=== PATIENT | male | born 1950 | race Caucasian/White ===

== ENCOUNTER 2021-01-29 16:59 | Emergency (ER) | payer MEDICARE, OTHER ==
--- NOTE | 2021-01-29 17:42 | EDM.PDOC ---
ED HPI GENERAL MEDICAL PROBLEM - General Chief Complaint: Fever Stated Complaint: CHILLS WEAK CONFUSED FEVER Time Seen by Provider: 01/29/21 17:37 Source of Information: Reports: Patient History Limitations: Reports: No Limitations - History of Present Illness INITIAL COMMENTS - FREE TEXT/NARRATIVE: 70-year-old male attends the ED due to development of high fever(104) generaliz ed weakness, and diaphoresis and apparent confusion at home this afternoon. Temperature in the ED is now 99 degrees. O2 sats are 95 to 96% on room air. Of note the patient developed signs and symptoms of COVID-19 illness with fever chills headache on January 22. He attended the ED earlier this morning as an outpatient to receive Regen-Cov infusion which she did receive. He is feeling somewhat better now. His gave him an antipyretic at home is not sure if it was Tylenol or Motrin. He has a paroxysmal cough with no productive sputum. No sore throat. He has lost his sense of taste and smell. Not able to eat due to loss of appetite. Small amount of diarrhea which was believed to be starvation stools. Paroxysmal cough is his worst problem. Generalized weakness. He states his also has a COVID-19 illness but has only cold and sinus symptoms. He did not receive COVID-19 vaccine. Onset: Today, Sudden Onset Date: 01/29/21 Onset Time: 16:00 Duration: Day(s):, Getting Worse (Has been sick with COVID-19 illness for 7 days.) Location: Reports: Other (Onset of high fever with diaphoresis this afternoon and apparent confusion when his temperature was as high as 104 degrees. He feels pretty well back to normal now after receiving antipyretic medication at home.) Quality: Reports: Ache Severity: Moderate (Mild generalized myalgia.) Improves with: Reports: None Worsens with: Reports: Movement Context: Reports: Other (Both he and his are COVID-19 positive with symptoms starting last January 22.). Denies: Activity, Exercise, Lifting, Sick Contact, Trauma Associated Symptoms: Reports: Confusion (Transient confusion reported today with temperature reported to be as high as 104 degrees.), Cough, cough w sputum, Diaphoresis, Fever/Chills, Loss of Appetite, Malaise, Nausea/Vomiting, Shortness of Breath, Weakness (Occasional nausea and vomiting.). Denies: Chest Pain, Headaches, Rash, Seizure, Syncope Treatments TAP PULLER: Reports: Other (see below) (He is not sure if his gave him Tylenol or Motrin for fever relief this afternoon.) - Related Data Allergies Allergy/AdvReac Type Severity Reaction Status Date / Time No Known Allergies Allergy Verified 01/29/21 17:14 Home Meds: Home Meds Insulin Glarg,Human.Rec.Analog [Lantus Solostar] 60 units SQ BEDTIME 01/29/21 [History] lisinopriL [Prinivil] 10 mg PO DAILY 01/29/21 [History] metFORMIN HCl [Metformin HCl] 500 mg PO BID 01/29/21 [History] Past Medical History Cardiovascular History: Reports: Hypertension Endocrine/Metabolic History: Reports: Diabetes, Type II (Controlled with both long-acting and short acting insulin and Metformin daily), Obesity/BMI 30+ Oncologic (Cancer) History: Reports: Colon (8 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 Musculoskeletal Surgical History: Reports: Other (See Below) Other Musculoskeletal Surgeries/Procedures:: Pelvic Surgery Social & Family History - Tobacco Use Tobacco Use Status *Q: Never Tobacco User - Caffeine Use Caffeine Use: Reports: Coffee - Recreational Drug Use Recreational Drug Use: No - Living Situation & Occupation Living situation: Reports: Occupation: Retired ED ROS GENERAL - Review of Systems Review Of Systems: See Below Constitutional: Reports: Fever, Chills, Malaise, Fatigue, Decreased Appetite, Weight Loss HEENT: Reports: Glasses, Other Respiratory: Reports: Shortness of Breath (Loss of sense of taste and smell with COVID-19 illness), Cough, Sputum (Not getting much sputum up.). Denies: Wheezing, Pleuritic Chest Pain, Hemoptysis, Other Cardiovascular: Reports: Chest Pain, Blood Pressure Problem (Central chest discomfort from coughing.), Dyspnea on Exertion, Lightheadedness. Denies: Claudication, Edema, Orthopnea, Palpitations Endocrine: Reports: Fatigue GI/Abdominal: Reports: Diarrhea (Slight yellow stools 2-3 times daily.), Decreased Appetite (Marked loss of appetite), Nausea, Vomiting (On occasion.) : Reports: Other (Urine is dark in color.) Musculoskeletal: Reports: Neck Pain, Shoulder Pain, Back Pain, Muscle Pain Skin: Reports: No Symptoms Neurological: Reports: Confusion, Dizziness, Headache (Confusion this afternoon reported with development of very high fever.), Difficulty Walking, Weakness. Denies: Numbness, Syncope, Tingling, Tremors, Trouble Speaking (Due to weakness and dyspnea) Psychiatric: Reports: No Symptoms Hematologic/Lymphatic: Reports: No Symptoms ED EXAM, GENERAL - Physical Exam Exam: See Below Exam Limited By: No Limitations General Appearance: Alert, WD/WN, No Apparent Distress, Other (Patient is alert answers all questions appropriately. Temperature was 37.2 degrees. Heart rate 98 in sinus. Respiratory 18 with O2 sats of 95 to 96% room air. BP 191/76 and currently down to 148/85.) Eye Exam: Bilateral Eye: Normal Inspection (No scleral icterus or blepharal pallor.), PERRL Throat/Mouth: Normal Inspection, Normal Lips, Normal Oropharynx, Other (Tongue is mildly dry.) Head: Atraumatic ( Oropharynx is otherwise normal), Normocephalic Neck: Normal Inspection, Supple, Non-Tender, Full Range of Motion. No: Carotid Bruit, Lymphadenopathy (L), Lymphadenopathy (R) Respiratory/Chest: Lungs Clear ( 95 to 96% on room air.), Normal Breath Sounds, No Accessory Muscle Use, Respiratory Distress (Mild tachypnea. O2 sats are maintained at) Cardiovascular: Normal Peripheral Pulses, Regular Rate, Rhythm, No Edema, No Gallop, No Murmur, No Rub Peripheral Pulses: 2+: Carotid (L), Carotid (R), Posterior Tibial (L), Posterior Tibial (R), Dorsalis Pedis (L), Dorsalis Pedis (R) GI/Abdominal: Normal Bowel Sounds, Non-Tender, No Organomegaly, Pelvis Stable, Hernia (Ventral hernia.), Other (The abdominal wall is firm. He has a supraumbilical midline surgical wound apparently for removal of 8 inches of his transverse colon due to cancer. This was approximately 5 years ago and he never required any chemotherapy. He has developed a incisional or ventral hernia. ). No: Guarding, Rigid, Rebound, Tender Back Exam: Normal Inspection, Full Range of Motion, Other (Mild increase in lumbar lordotic curvature.). No: CVA Tenderness (L), CVA Tenderness (R) Extremities: Normal Inspection, Normal Range of Motion, Non-Tender, No Pedal Edema Neurological: Alert, Oriented, CN II-XII Intact, Normal Cognition Psychiatric: Normal Affect, Normal Mood Skin Exam: Warm, Dry, Intact, Normal Color, No Rash #1 Interpretation EKG Date: 01/29/21 Time: 17:47 Rhythm: NSR Rate (Beats/Min): 97 [place]: Normal P-Wave: Enlarged (Left atrial hypertrophy) QRS: Other (Early R wave transition consider right ventricle hypertrophy versus septal hypertrophy pattern.) ST-T: Other (T wave inversion leads III and aVF consider inferior wall ischemia) QT: Prolonged (Markedly prolonged) EKG Interpretation Comments: Abnormal ECG Course - Vital Signs Last Recorded V/S: Last Vital Signs Temp 37.2 C 01/29/21 17:10 Pulse 95 01/29/21 17:15 Resp 20 01/29/21 17:15 BP 153/68 H 01/29/21 17:15 Pulse Ox 95 01/29/21 17:15 - Orders/Labs/Meds Orders: Active Orders 24 hr Category Date Time Status Chest 1V Frontal [CR] Stat Exams 01/29/21 17:37 Taken BLOOD CULTURE [MREF] Stat Lab 01/29/21 18:00 Received BLOOD CULTURE [MREF] Stat Lab 01/29/21 18:05 Received Sodium Chloride 0.9% [Normal Saline] 500 ml Med 01/29/21 18:17 Active IV .BOLUS Blood Culture x2 Reflex Set [OM.PC] Stat Oth 01/29/21 17:47 Ordered Medication Orders Sodium Chloride (Normal Saline) 500 mls @ 500 mls/hr IV .BOLUS ONE Stop: 01/29/21 19:16 Last Admin: 01/29/21 18:30 Dose: Not Given Documented by: SAKSHI Labs: Laboratory Tests 01/29/21 01/29/21 01/29/21 Range/Units 17:10 17:10 17:10 WBC 4.29 (4.23-9.07) K/mm3 RBC 4.96 (4.63-6.08) M/mm3 Hgb 15.0 (13.7-17.5) gm/dl Hct 43.7 (40.1-51.0) % MCV 88.1 (79.0-92.2) fl MCH 30.2 (25.7-32.2) pg MCHC 34.3 (32.2-35.5) g/dl RDW Std Deviation 45.1 H (35.1-43.9) fL Plt Count 159 L (163-337) K/mm3 MPV 9.3 L (9.4-12.3) fl Neut % (Auto) 73.5 H (34.0-67.9) % Lymph % (Auto) 15.4 L (21.8-53.1) % Tripp % (Auto) 10.7 (5.3-12.2) % Eos % (Auto) 0 L (0.8-7.0) Baso % (Auto) 0.2 (0.1-1.2) % Neut # (Auto) 3.15 (1.78-5.38) K/mm3 Lymph # (Auto) 0.66 L (1.32-3.57) K/mm3 Tripp # (Auto) 0.46 (0.30-0.82) K/mm3 Eos # (Auto) 0.00 L (0.04-0.54) K/mm3 Baso # (Auto) 0.01 (0.01-0.08) K/mm3 D-Dimer, Quantitative (0.19-0.50) mg/L Sodium 135 L (136-145) mEq/L Potassium 4.2 (3.5-5.1) mEq/L Chloride 100 (98-107) mEq/L Carbon Dioxide 20 L (21-32) mEq/L Anion Gap 19.2 H (5-15) BUN 19 H (7-18) mg/dL Creatinine 1.1 (0.7-1.3) mg/dL Est Cr Clr Drug Dosing TNP Estimated GFR (MDRD) > 60 (>60) mL/min BUN/Creatinine Ratio 17.3 (14-18) Glucose 182 H (70-99) mg/dL Lactic Acid (0.4-2.0) mmol/L Calcium 8.5 (8.5-10.1) mg/dL Magnesium 1.8 (1.8-2.4) mg/dL Total Bilirubin 0.4 (0.2-1.0) mg/dL AST 37 (15-37) U/L ALT 53 (16-63) U/L Alkaline Phosphatase 57 (46-116) U/L Lactate Dehydrogenase 250 H (85-227) U/L Troponin I < 0.017 (0.00-0.056) ng/mL C-Reactive Protein 4.3 H* (<1.0) mg/dL NT-Pro-B Natriuret Pep 9 (0-125) pg/mL Total Protein 7.5 (6.4-8.2) g/dl Albumin 3.8 (3.4-5.0) g/dl Globulin 3.7 gm/dL Albumin/Globulin Ratio 1.0 (1-2) 01/29/21 01/29/21 Range/Units 17:10 18:00 WBC (4.23-9.07) K/mm3 RBC (4.63-6.08) M/mm3 Hgb (13.7-17.5) gm/dl Hct (40.1-51.0) % MCV (79.0-92.2) fl MCH (25.7-32.2) pg MCHC (32.2-35.5) g/dl RDW Std Deviation (35.1-43.9) fL Plt Count (163-337) K/mm3 MPV (9.4-12.3) fl Neut % (Auto) (34.0-67.9) % Lymph % (Auto) (21.8-53.1) % Tripp % (Auto) (5.3-12.2) % Eos % (Auto) (0.8-7.0) Baso % (Auto) (0.1-1.2) % Neut # (Auto) (1.78-5.38) K/mm3 Lymph # (Auto) (1.32-3.57) K/mm3 Tripp # (Auto) (0.30-0.82) K/mm3 Eos # (Auto) (0.04-0.54) K/mm3 Baso # (Auto) (0.01-0.08) K/mm3 D-Dimer, Quantitative 0.70 H (0.19-0.50) mg/L Sodium (136-145) mEq/L Potassium (3.5-5.1) mEq/L Chloride (98-107) mEq/L Carbon Dioxide (21-32) mEq/L Anion Gap (5-15) BUN (7-18) mg/dL Creatinine (0.7-1.3) mg/dL Est Cr Clr Drug Dosing Estimated GFR (MDRD) (>60) mL/min BUN/Creatinine Ratio (14-18) Glucose (70-99) mg/dL Lactic Acid 1.2 (0.4-2.0) mmol/L Calcium (8.5-10.1) mg/dL Magnesium (1.8-2.4) mg/dL Total Bilirubin (0.2-1.0) mg/dL AST (15-37) U/L ALT (16-63) U/L Alkaline Phosphatase (46-116) U/L Lactate Dehydrogenase (85-227) U/L Troponin I (0.00-0.056) ng/mL C-Reactive Protein (<1.0) mg/dL NT-Pro-B Natriuret Pep (0-125) pg/mL Total Protein (6.4-8.2) g/dl Albumin (3.4-5.0) g/dl Globulin gm/dL Albumin/Globulin Ratio (1-2) Meds: Medications Generic Name Dose Route Start Last Admin Trade Name Freq PRN Reason Stop Dose Admin Sodium Chloride 500 mls @ 500 mls/hr 01/29/21 18:17 01/29/21 18:30 Normal Saline IV 01/29/21 19:16 Not Given .BOLUS ONE Discontinued Medications Generic Name Dose Route Start Last Admin Trade Name Freq PRN Reason Stop Dose Admin Dextrose/Sodium Chloride 1,000 mls @ 250 mls/hr 01/29/21 17:45 01/29/21 17:50 Dextrose 5%-Normal Saline IV 250 mls/hr ASDIRECTED JANNA Administration - Radiology Interpretation Free Text/Narrative:: 70-year-old male presents to the ED after developing or spiking a very high fever reportedly 104 degrees at home around 1600 hrs. this afternoon. His reports this caused him to be confused and disoriented. He has improved after receiving antipyretic therapy administered by his . Patient does not recall if it was Tylenol or Motrin. He answers all questions appropriately now. He was in the ED earlier this morning for monoclonal antibody therapy which he tolerated well. Patient was diagnosed with COVID-19 with symptoms beginning on January 22. His also has illness but he states she mostly has a cold and minimal cough. He has lost his sense of taste and smell. He continues to have a paroxysmal minimally productive cough. Complete loss of appetite with poor oral intake for the last several days. Minimal diarrhea which I would consider secretory or starvation stools. Temperature in the ED is down to 99 degrees. He is alert oriented and answers all questions appropriate at this time. His lungs are clear to auscultation percussion and O2 sats are 95 to 96% on room air. He will be worked up for sepsis to include lactic acid and blood cultures x2. He will receive fluids D5 LR at 250 mils per hour. At this point time it does not appear that he will require admission to the hospital. Will await his labs and chest x-ray. - Re-Assessments/Exams Free Text/Narrative Re-Assessment/Exam: 01/29/21 18:16 White count is normal at 4.29. The differential shows 73.5% neutrophils. Hemoglobin is 15.0 with hematocrit of 43.7. Platelet count is slightly low at 159,000. D-dimer is slightly elevated at 0.70. Sodium slightly low at 135 with a potassium of 4.2. Chloride is 100 with a bicarb of 20. Anion gap is elevated at 19.2 indicating that he is volume depleted. BUN is 19 with a creatinine of 1.1 and a GFR greater than 60. Glucose is elevated at 182. Calcium is 8.5. Magnesium is 1.8. Liver function is normal. LDH mildly elevated at 250. Troponin I is less than 0.017. C-reactive protein is 4.3. BNP is 9. Total protein 7.5 with an albumin fraction of 3.8 01/29/21 18:20 chest x-ray reveals no evidence of pneumonia. Mildly hyperinflated lung dia bilaterally. Cardiac silhouette and mediastinum are within normal limits. Slightly tortuous thoracic aorta. Departure - Departure Time of Disposition: 18:56 Disposition: Home, Self-Care 01 Condition: Fair Clinical Impression: COVID-19 determined by clinical diagnostic criteria - Discharge Information *PRESCRIPTION DRUG MONITORING PROGRAM REVIEWED*: Not Applicable *COPY OF PRESCRIPTION DRUG MONITORING REPORT IN PATIENT ALEJANDRA: Not Applicable Instructions: COVID-19 Frequently Asked Questions, COVID-19 Vaccine Information Referrals: PCP,None [Primary Care Provider] - Forms: ED Department Discharge Additional Instructions: Evaluation in the emergency room today in regards to known Covid 19 positivity with illness starting January 22 1 week ago. You did receive dual monoclonal antibody therapy Regen-Cov earlier this morning. The spike in temperature that occurred this afternoon may well have been due to your immune system reaction to the monoclonal antibody therapy. Confusion occurred from the very high fever reported at home of 104 degrees. Ibuprofen given at home has reduced her fever and it is currently normal in the ED. Chest x-ray done through the emergency room is negative for any signs of pneumonia at this time. Lab tests reveal that you are mildly dehydrated and I would suggest drinking Gatorade or Powerade 0 in an effort to maintain hydration in spite of lack of appetite. Loose stools are secondary to starvation stools from not being able to eat. Even soda crackers will help somewhat. You did receive 500 mils of intravenous fluids while in the emergency department to help correct dehydration. You will need to continue to take in at least 150 mils of fluids daily to maintain hydration. You will likely to continue Motrin/Ibuprofen center milligrams every 6 hours as needed for relief of fever, headache, body aches. Monitor your sugars as they will tend to be higher with COVID-19 illness even in spite of eating. You will be sent home with a pulse oximeter to measure your oxygen level at home. Concern should arise if your oxygen level is 88 and is staying there for an hour or 2 and not coming up higher. This would mean that you are developing COVID-19 pneumonia and you would need to return to the emergency room for likely admission to the hospital. Fevers are likely to persist for at least 24 to 36 hours and reaction to the monoclonal antibody she received earlier this morning. Sepsis Event Note (ED) - Evaluation Sepsis Screening Result: Possible Sepsis Risk - Focused Exam Vital Signs: Vital Signs Temp Pulse Resp BP Pulse Ox 01/29/21 17:15 95 20 153/68 H 95 01/29/21 17:10 37.2 C 98 18 191/76 H 96 - My Orders Last 24 Hours: My Active Orders 01/29/21 17:37 Chest 1V Frontal [CR] Stat 01/29/21 17:47 Blood Culture x2 Reflex Set [OM.PC] Stat 01/29/21 18:00 BLOOD CULTURE [MREF] Stat 01/29/21 18:05 BLOOD CULTURE [MREF] Stat 01/29/21 18:17 Sodium Chloride 0.9% [Normal Saline] 500 ml IV .BOLUS - Assessment/Plan Last 24 Hours: My Active Orders 01/29/21 17:37 Chest 1V Frontal [CR] Stat 01/29/21 17:47 Blood Culture x2 Reflex Set [OM.PC] Stat 01/29/21 18:00 BLOOD CULTURE [MREF] Stat 01/29/21 18:05 BLOOD CULTURE [MREF] Stat 01/29/21 18:17 Sodium Chloride 0.9% [Normal Saline] 500 ml IV .BOLUS
[2021-01-29] MEDS ORDERED: Dextrose 5%-0.9% NaCl 1,000 ML IV SCH (17:45)
[2021-01-29] MEDS ORDERED: Sodium Chloride 0.9% 500 ML IV ONE (18:17)
--- NOTE | 2021-01-29 20:46 | CR ---
Chest: Frontal view of the chest was obtained. Comparison: No prior chest imaging is available. Heart size is normal. Tortuous thoracic aorta is seen. Lungs are clear with no acute parenchymal change. Scattered degenerative endplate spurring is seen within the spine. Impression: 1. Nothing acute is seen on frontal chest x-ray. Diagnostic code #2
== END 2021-01-29 19:00 | disposition home or self-care (01) ==
LOC: JD.ED 16:59
DX: U07.1 COVID-19 (principal); E11.9 Type 2 diabetes mellitus without complications; E66.9 Obesity, unspecified; Z68.30 Body mass index [BMI] 30.0-30.9, adult; Z79.4 Long term (current) use of insulin; R06.02 Shortness of breath
CPT/HCPCS: 36415; 71045; 80053; 83605; 83615; 83735; 83880; 84484; 85025; 85379; 86140; 87040; 93005; 99285; J7042; M0243; Q0243; 93010; 99284

== ENCOUNTER 2021-02-06 13:15 | Emergency (ER) | payer MEDICARE, OTHER ==
[2021-02-06] MEDS ORDERED: Sodium Chloride 0.9% 10 ML Syringe FLUSH PRN ×2 (13:53→14:51)
[2021-02-06] MEDS ORDERED: Sodium Chloride 0.9% 1,000 ML IV STA ×2 (13:54→15:36)
[2021-02-06] MEDS ORDERED: Iopamidol 755 Mg/ML 100 ML Bottle IVPUSH ONE (14:51)
[2021-02-06] MEDS ORDERED: Sodium Chloride 0.9% 100 ML IV SCH (15:00)
--- NOTE | 2021-02-06 15:09 | CR ---
Chest: Portable view of the chest was obtained. Comparison: Prior chest x-ray at 01/29/21. Increased density is seen within both lung bases. This represents an interval change from prior chest x-ray. Heart size is within normal limits for portable technique. Tortuous thoracic aorta is seen. Endplate spurring is seen within the spine. Impression: 1. Increased density within both lung bases. Findings presumably are due to COVID pneumonia. 2. Other nonacute findings. Diagnostic code #3
--- NOTE | 2021-02-06 15:37 | CT ---
CT chest Technique: Multiple axial sections were obtained from above the lung apices inferiorly through the lung bases. Intravenous contrast was utilized. Study has been performed as a pulmonary angiogram protocol. Comparison: Prior chest x-ray performed earlier on the same day (2:00 PM). Findings: Pulmonary arteries are well opacified. Small segmental branch within the left lower lung shows evidence of pulmonary embolism. No other findings are seen within the chest to indicate additional pulmonary emboli. Thoracic aorta shows no aneurysm. Mediastinum shows small lymph nodes believed to be within normal limits. No axillary adenopathy is seen. No pericardial thickening is seen. Small portion of the visualized upper abdominal structures shows no acute abnormality. Lung window setting shows patchy areas of increased density within the upper lungs as well as more prominently within both lower lobes. Findings have the appearance of so-called COVID pneumonia. No pleural effusions are seen. Bone window settings were reviewed which show degenerative change within the spine with no acute osseous abnormality being seen. Impression: 1. Small segmental branch within the left lower lung shows evidence of pulmonary embolism. 2. No additional findings within the chest to indicate additional pulmonary emboli. 3. Patchy areas of increased density within both sides of the chest compatible with COVID pneumonia. Diagnostic code #3
[2021-02-06] MEDS ORDERED: Apixaban 5 MG Tab PO ONE (15:41)
--- NOTE | 2021-02-06 15:50 | EDM.PDOC ---
ED HPI GENERAL MEDICAL PROBLEM - General Chief Complaint: Respiratory Problem Stated Complaint: INFUSION LAST WEEK GETTING WORSE Time Seen by Provider: 02/06/21 13:53 Source of Information: Reports: Patient, RN Notes Reviewed History Limitations: Reports: No Limitations - History of Present Illness INITIAL COMMENTS - FREE TEXT/NARRATIVE: Patient is a 70-year-old male presenting to the emergency department with complaints of worsening of Covid symptoms. He developed symptoms of Covid around 21 January. He was seen in this emergency department last week and received Regeneron infusion. Over the last few days, he has been increasingly weak and fatigued. He is not been eating or drinking much and states his urine is quite dark in color. He only voids once or twice a day. He does feel short of breath and has chest tightness. Denies any chest pain. He has had no vomiting or diarrhea. - Related Data Allergies Allergy/AdvReac Type Severity Reaction Status Date / Time No Known Allergies Allergy Verified 02/06/21 13:49 Home Meds: Home Meds Insulin Glarg,Human.Rec.Analog [Lantus Solostar] 60 units SQ BEDTIME 01/29/21 [History] lisinopriL [Prinivil] 10 mg PO DAILY 01/29/21 [History] metFORMIN HCl [Metformin HCl] 500 mg PO BID 01/29/21 [History] Apixaban [Eliquis] 5 mg PO BID #1 tab.ds.pk 02/06/21 [Rx] Benzonatate 100 mg PO TID PRN #21 capsule 02/06/21 [Rx] Past Medical History Cardiovascular History: Reports: Hypertension Endocrine/Metabolic History: Reports: Diabetes, Type II, Obesity/BMI 30+ Oncologic (Cancer) History: Reports: Colon - Infectious Disease History Infectious Disease History: Reports: Novel Coronavirus - Past Surgical History GI Surgical History: Reports: Hernia, Abdominal, Other (See Below) Other GI Surgeries/Procedures: Colon CA surgery, 8" of bowel removed. Musculoskeletal Surgical History: Reports: Other (See Below) Other Musculoskeletal Surgeries/Procedures:: Pelvic Surgery Social & Family History - Tobacco Use Tobacco Use Status *Q: Never Tobacco User - Caffeine Use Caffeine Use: Reports: Coffee - Living Situation & Occupation Living situation: Reports: Occupation: Retired ED ROS GENERAL - Review of Systems Review Of Systems: Comprehensive ROS is negative, except as noted in HPI. ED EXAM, GENERAL - Physical Exam Exam: See Below Exam Limited By: No Limitations General Appearance: Alert, WD/WN, No Apparent Distress Eye Exam: Bilateral Eye: PERRL Respiratory/Chest: No Respiratory Distress, Lungs Clear, Normal Breath Sounds, No Accessory Muscle Use, Chest Non-Tender, Other (Harsh cough with deep breathing) Cardiovascular: Normal Peripheral Pulses, Regular Rate, Rhythm, No Edema, No Gallop, No JVD, No Murmur, No Rub GI/Abdominal: Normal Bowel Sounds, Soft, Non-Tender, No Organomegaly, No Distention, No Abnormal Bruit, No Mass Neurological: Alert, Oriented, CN II-XII Intact, Normal Cognition, Normal Gait, Normal Reflexes, No Motor/Sensory Deficits Psychiatric: Normal Affect, Normal Mood Skin Exam: Warm, Dry, Intact, Normal Color, No Rash #1 Interpretation EKG Date: 02/06/21 Time: 14:11 Rhythm: NSR Rate (Beats/Min): 92 [place]: Normal P-Wave: Present QRS: Normal ST-T: Normal QT: Normal Course - Vital Signs Last Recorded V/S: Last Vital Signs Temp 97.9 F 02/06/21 13:43 Pulse 92 02/06/21 13:43 Resp 22 H 02/06/21 13:43 BP 157/79 H 02/06/21 13:43 Pulse Ox 94 L 02/06/21 13:43 - Orders/Labs/Meds Orders: Active Orders 24 hr Category Date Time Status Peripheral IV Insertion Adult [OM.PC] Stat Oth 02/06/21 13:53 Ordered Labs: Laboratory Tests 02/06/21 02/06/21 02/06/21 Range/Units 11:40 14:05 14:05 WBC 9.86 H (4.23-9.07) K/mm3 RBC 4.64 (4.63-6.08) M/mm3 Hgb 13.8 (13.7-17.5) gm/dl Hct 41.1 (40.1-51.0) % MCV 88.6 (79.0-92.2) fl MCH 29.7 (25.7-32.2) pg MCHC 33.6 (32.2-35.5) g/dl RDW Std Deviation 43.6 (35.1-43.9) fL Plt Count 430 H D (163-337) K/mm3 MPV 8.3 L (9.4-12.3) fl Neut % (Auto) 79.7 H (34.0-67.9) % Lymph % (Auto) 7.5 L (21.8-53.1) % [place] % (Auto) 11.3 (5.3-12.2) % Eos % (Auto) 0.8 (0.8-7.0) Baso % (Auto) 0.2 (0.1-1.2) % Neut # (Auto) 7.86 H (1.78-5.38) K/mm3 Lymph # (Auto) 0.74 L (1.32-3.57) K/mm3 [place] # (Auto) 1.11 H (0.30-0.82) K/mm3 Eos # (Auto) 0.08 (0.04-0.54) K/mm3 Baso # (Auto) 0.02 (0.01-0.08) K/mm3 D-Dimer, Quantitative 16.72 H (0.19-0.50) mg/L Sodium 137 (136-145) mEq/L Potassium 4.4 (3.5-5.1) mEq/L Chloride 100 (98-107) mEq/L Carbon Dioxide 18 L (21-32) mEq/L Anion Gap 23.4 H (5-15) BUN 15 (7-18) mg/dL Creatinine 1.0 (0.7-1.3) mg/dL Est Cr Clr Drug Dosing 72.16 mL/min Estimated GFR (MDRD) > 60 (>60) mL/min BUN/Creatinine Ratio 15.0 (14-18) Glucose 111 H (70-99) mg/dL Calcium 9.1 (8.5-10.1) mg/dL Total Bilirubin 0.6 (0.2-1.0) mg/dL AST 61 H (15-37) U/L ALT 71 H (16-63) U/L Alkaline Phosphatase 90 (46-116) U/L Troponin I < 0.017 (0.00-0.056) ng/mL NT-Pro-B Natriuret Pep (0-125) pg/mL Total Protein 7.9 (6.4-8.2) g/dl Albumin 2.7 L (3.4-5.0) g/dl Globulin 5.2 gm/dL Albumin/Globulin Ratio 0.5 L (1-2) Urine Color (Yellow) Urine Appearance (Clear) Urine pH (5.0-8.0) Ur Specific [place] (1.005-1.030) Urine Protein (Negative) Urine Glucose (UA) (Negative) Urine Ketones (Negative) Urine Occult Blood (Negative) Urine Nitrite (Negative) Urine Bilirubin (Negative) Urine Urobilinogen (0.2-1.0) Ur Leukocyte Esterase (Negative) U Hyaline Cast (Auto) (0-5) /lpf Urine RBC (0-5) /hpf Urine WBC (0-5) /hpf Ur Epithelial Cells (0-5) /hpf Urine Bacteria (FEW) /hpf Urine Mucus (FEW) /hpf 02/06/21 02/06/21 Range/Units 14:05 16:48 WBC (4.23-9.07) K/mm3 RBC (4.63-6.08) M/mm3 Hgb (13.7-17.5) gm/dl Hct (40.1-51.0) % MCV (79.0-92.2) fl MCH (25.7-32.2) pg MCHC (32.2-35.5) g/dl RDW Std Deviation (35.1-43.9) fL Plt Count (163-337) K/mm3 MPV (9.4-12.3) fl Neut % (Auto) (34.0-67.9) % Lymph % (Auto) (21.8-53.1) % [place] % (Auto) (5.3-12.2) % Eos % (Auto) (0.8-7.0) Baso % (Auto) (0.1-1.2) % Neut # (Auto) (1.78-5.38) K/mm3 Lymph # (Auto) (1.32-3.57) K/mm3 [place] # (Auto) (0.30-0.82) K/mm3 Eos # (Auto) (0.04-0.54) K/mm3 Baso # (Auto) (0.01-0.08) K/mm3 D-Dimer, Quantitative (0.19-0.50) mg/L Sodium (136-145) mEq/L Potassium (3.5-5.1) mEq/L Chloride (98-107) mEq/L Carbon Dioxide (21-32) mEq/L Anion Gap (5-15) BUN (7-18) mg/dL Creatinine (0.7-1.3) mg/dL Est Cr Clr Drug Dosing mL/min Estimated GFR (MDRD) (>60) mL/min BUN/Creatinine Ratio (14-18) Glucose (70-99) mg/dL Calcium (8.5-10.1) mg/dL Total Bilirubin (0.2-1.0) mg/dL AST (15-37) U/L ALT (16-63) U/L Alkaline Phosphatase (46-116) U/L Troponin I (0.00-0.056) ng/mL NT-Pro-B Natriuret Pep 29 (0-125) pg/mL Total Protein (6.4-8.2) g/dl Albumin (3.4-5.0) g/dl Globulin gm/dL Albumin/Globulin Ratio (1-2) Urine Color Yellow (Yellow) Urine Appearance Clear (Clear) Urine pH 5.5 (5.0-8.0) Ur Specific [place] 1.020 (1.005-1.030) Urine Protein Negative (Negative) Urine Glucose (UA) Negative (Negative) Urine Ketones 4+ H (Negative) Urine Occult Blood Negative (Negative) Urine Nitrite Negative (Negative) Urine Bilirubin 1+ H (Negative) Urine Urobilinogen 0.2 (0.2-1.0) Ur Leukocyte Esterase Negative (Negative) U Hyaline Cast (Auto) 0-5 (0-5) /lpf Urine RBC 0-5 (0-5) /hpf Urine WBC 0-5 (0-5) /hpf Ur Epithelial Cells Not seen (0-5) /hpf Urine Bacteria Few (FEW) /hpf Urine Mucus Few (FEW) /hpf Meds: Medications Discontinued Medications Generic Name Dose Route Start Last Admin Trade Name Freq PRN Reason Stop Dose Admin Apixaban 10 mg 02/06/21 15:41 02/06/21 16:28 Apixaban 5 Mg Tab PO 02/06/21 15:42 10 mg ONETIME ONE Administration Sodium Chloride 1,000 mls @ 999 mls/hr 02/06/21 13:54 02/06/21 14:45 Normal Saline IV 09/02/21 14:54 999 mls/hr NOW STA Infusion Sodium Chloride 100 mls @ 75 mls/hr 02/06/21 15:00 02/06/21 15:10 Normal Saline IV 75 mls/hr ASDIRECTED JANNA Administration Sodium Chloride 1,000 mls @ 999 mls/hr 02/06/21 15:36 02/06/21 16:28 Normal Saline IV 02/06/21 16:36 999 mls/hr NOW STA Administration Iopamidol 100 ml 02/06/21 14:51 02/06/21 15:10 Iopamidol 755 Mg/Ml 100 Ml Bottle IVPUSH 02/06/21 14:52 100 ml ONETIME ONE Administration Sodium Chloride 10 ml 02/06/21 13:53 02/06/21 14:08 Sodium Chloride 0.9% 10 Ml Syringe FLUSH 10 ml ASDIRECTED PRN Administration Keep Vein Open Sodium Chloride 10 ml 02/06/21 14:51 02/06/21 15:10 Sodium Chloride 0.9% 10 Ml Syringe FLUSH 10 ml ONETIME PRN Administration IV FLUSH - Re-Assessments/Exams Free Text/Narrative Re-Assessment/Exam: Patient is a 70-year-old male presenting to the emergency department with complaints of worsening Covid symptoms. Complains of fatigue, body aches, shortness of breath, decreased appetite. Little fluid intake with dark urine. On exam, he has some faint crackles in his bilateral lower lung dia. Exam is otherwise unremarkable. Oxygen saturation is 94% on room air. Blood work, urinalysis, chest x-ray. We will give him 1 L bolus of normal saline. 02/06/21 1450 Hematology is significant for D-dimer elevated at 16.72, CO2 18, anion gap 23.4. Otherwise unremarkable. proBNP is 29 and troponin is undetectably low. Given the significant elevation of D-dimer, I have ordered CT angiogram of the chest. Lab work indicates that he is quite dehydrated. We will give him a second liter of normal saline. 02/06/21 16:38 CT angiogram of the chest impression as follows: 1. Small segmental branch within the left lower lung shows evidence of pulmonary embolism. 2. No additional findings within the chest to indicate additional pulmonary emboli. 3. Patchy areas of increased density within both sides of the chest compatible with Covid pneumonia. . Results discussed with patient. He will be started on Eliquis for treatment of pulmonary embolism. Vital signs are stable. He is not tachycardic, oxygen is maintaining 94 to 95% on room air. EKG shows acute abnormalities. Once IV fluids are complete, he will be discharged home. He does not have a primary care provider in the area, therefore I will send referral to JIM Duke. Recommend that he call to schedule follow-up visit with her for next week. Discharge instructions as documented. Departure - Departure Time of Disposition: 16:38 Disposition: Home, Self-Care 01 Condition: Good Clinical Impression: Pneumonia due to COVID-19 virus, Pulmonary embolism on left - Discharge Information *PRESCRIPTION DRUG MONITORING PROGRAM REVIEWED*: No *COPY OF PRESCRIPTION DRUG MONITORING REPORT IN PATIENT ALEJANDRA: No Prescriptions: Benzonatate 100 mg PO TID PRN #21 capsule PRN Reason: Cough Apixaban [Eliquis] 5 mg PO BID #1 tab.ds.pk Instructions: COVID-19, Pulmonary Embolism Referrals: Maryellen Goldman PA-C [Physician Supervisor [facility]] - Forms: ED Department Discharge Additional Instructions: You were seen in the emergency department today for worsening of Covid symptoms. Work-up included blood work, urinalysis,, EKG of your heart, chest x-ray, and CT angiogram of your chest. Results of your work-up indicate that your quite dehydrated. You also have a small blood clot in her left lower lung. You have been started on Eliquis which is a blood thinner. Take this as prescribed. Increase your fluid intake is much as tolerable. Referral has been sent to JIM Duke in the clinic. Recommend calling and schedule a follow-up visit with her for next week for ongoing management of your Eliquis medication. If you should experience any new or worsening symptoms, please not hesitate to return to the emergency department for reevaluation. Sepsis Event Note (ED) - Focused Exam Vital Signs: Vital Signs Temp Pulse Resp BP Pulse Ox 02/06/21 13:43 97.9 F 92 22 H 157/79 H 94 L - My Orders Last 24 Hours: My Active Orders 02/06/21 13:53 Peripheral IV Insertion Adult [OM.PC] Stat - Assessment/Plan Last 24 Hours: My Active Orders 02/06/21 13:53 Peripheral IV Insertion Adult [OM.PC] Stat
== END 2021-02-06 17:45 | disposition home or self-care (01) ==
LOC: JD.ED 13:15
DX: U07.1 COVID-19 (principal); J12.82 Pneumonia due to coronavirus disease 2019; I26.99 Other pulmonary embolism without acute cor pulmonale; I10 Essential (primary) hypertension; E66.9 Obesity, unspecified; E11.9 Type 2 diabetes mellitus without complications; Z68.31 Body mass index [BMI] 31.0-31.9, adult; Z79.4 Long term (current) use of insulin; Z79.01 Long term (current) use of anticoagulants; R06.02 Shortness of breath
CPT/HCPCS: 36415; 71045; 71275; 80053; 81001; 83880; 84484; 85025; 85379; 93005; 99285; A9270; J7030; Q9967; 93010; 99284

== ENCOUNTER 2021-02-09 07:42 | Inpatient (IN) | payer MEDICARE, OTHER ==
[2021-02-09] MEDS ORDERED: Metoclopramide 10 MG/2 ML SDV IVPUSH ONE (08:05)
--- NOTE | 2021-02-09 08:09 | EDM.PDOC ---
ED HPI GENERAL MEDICAL PROBLEM - General Chief Complaint: Respiratory Problem Stated Complaint: [facility] Time Seen by Provider: 02/09/21 07:50 Source of Information: Reports: Patient History Limitations: Reports: No Limitations - History of Present Illness INITIAL COMMENTS - FREE TEXT/NARRATIVE: 70-year-old male presents to the ED per [facility] with worsening hypoxemia secondary to COVID-19 pneumonia. O2 sats this morning at home were 85% on his pulse oximeter. Paramedics got 88 to 89%. They placed him on 4 L/min by nasal cannula to achieve O2 sats of 96%. In the ED he has been placed on 2 L/min and O2 sats are staying around 95 to 96%. Initial diagnosis of COVID-19 was made on January 22. Both he and his developed symptoms about the same time. She is doing much better. Patient has been seen twice to the ED since diagnosis. On last visit ,February 06 the patient was diagnosed with worsening Covid pneumonia both lower lobes of the lungs and did have a segmental branch in the left lower lobe containing blood clot or pulmonary embolism. Patient is currently on Eliquis 10 mg twice daily. He still is coughing but bringing up very little mucus. Still has nasal congestion, worse in the mornings. He has had no appetite and is ate very little in the last 10 days. He has a type II diabetic controlled with insulin and has not been checking his sugars. He still been taking his Lantus 61 units every night at bedtime. At the time she is checked he is got anywhere between 70 and 280. Patient is other risk factor is that of COPD mild congestive heart failure and obesity. He did not receive COVID-19 vaccination. He feels generally weak. He did have diarrhea for about 7 to 6 days of illness none in the last 3 days. No nausea or vomiting although sometimes he coughs to the point of near emesis. Still has generalized mild myalgia and occasional headache. Onset: Gradual Onset Date: 01/22/21 (Symptoms of COVID-19 illness began January 22.) Duration: Week(s):, Resolved Prior to Arrival Location: Reports: Chest (Increased chest congestion and hypoxemia at home.), Generalized (Generalized myalgia and weakness), Other (Anorexia) Quality: Reports: Ache Severity: Moderate Improves with: Reports: Rest Worsens with: Reports: Movement (Patient's condition worsens with movement such as walking from the bedroom to the bathroom developing shortness of breath.) Context: Reports: Other (COVID-19 pneumonia). Denies: Activity, Exercise, Lifting, Sick Contact, Trauma Associated Symptoms: Reports: Cough, cough w sputum, Fever/Chills (Current fevers of 101 degrees), Headaches, Loss of Appetite, Malaise (Occasional white sputum), Nausea/Vomiting (Nausea posttussis. No vomiting), Shortness of Breath, Weakness (Generalized weakness and myalgia). Denies: Confusion, Chest Pain, Diaphoresis, Rash, Seizure Treatments [employer]ST: Reports: Acetaminophen - Related Data Allergies Allergy/AdvReac Type Severity Reaction Status Date / Time No Known Allergies Allergy Verified 02/09/21 07:51 Home Meds: Home Meds Insulin Glarg,Human.Rec.Analog [Lantus Solostar] 60 units SQ BEDTIME 01/29/21 [History] lisinopriL [Prinivil] 10 mg PO DAILY 01/29/21 [History] metFORMIN HCl [Metformin HCl] 500 mg PO BID 01/29/21 [History] Benzonatate 100 mg PO TID PRN #21 capsule 02/06/21 [Rx] Apixaban [Eliquis] 10 mg PO BID 02/09/21 [History] Past Medical History HEENT History: Reports: Cataract, Impaired Vision Other HEENT History: wears eyeglasses Cardiovascular History: Reports: Hypertension Endocrine/Metabolic History: Reports: Diabetes, Type II, Obesity/BMI 30+ Oncologic (Cancer) History: Reports: Colon - Infectious Disease History Infectious Disease History: Reports: Novel Coronavirus - Past Surgical History GI Surgical History: Reports: Hernia, Abdominal, Other (See Below) Other GI Surgeries/Procedures: Colon CA surgery, 8" of bowel removed. Musculoskeletal Surgical History: Reports: Other (See Below) Other Musculoskeletal Surgeries/Procedures:: Pelvic Surgery Social & Family History - Tobacco Use Tobacco Use Status *Q: Never Tobacco User Second Hand Smoke Exposure: No - Caffeine Use Caffeine Use: Reports: Coffee - Recreational Drug Use Recreational Drug Use: No - Living Situation & Occupation Living situation: Reports: Occupation: Retired ED ROS GENERAL - Review of Systems Review Of Systems: See Below Constitutional: Reports: Fever, Malaise, Weakness, Fatigue, Decreased Appetite, Weight Loss HEENT: Reports: Glasses, Hearing Loss Respiratory: Reports: Shortness of Breath, Cough, Sputum. Denies: Wheezing, Pleuritic Chest Pain, Hemoptysis (Occasional white sputum) Cardiovascular: Reports: Blood Pressure Problem, Dyspnea on Exertion, Lightheadedness (Occasional). Denies: Chest Pain, Claudication, Edema, Orthopnea, Palpitations Endocrine: Reports: Other (Diabetic and sugars have been anywhere between 70 and 280.) GI/Abdominal: Reports: Anorexia, Diarrhea, Nausea (Did have diarrhea for about 6 days of illness none for the last 4 days). Denies: Abdominal Pain, Vomiting ( still has intermittent nausea), Other : Reports: Other (Urine is quite dark in color. He has been voiding only once or twice per day.) Musculoskeletal: Reports: Back Pain, Joint Pain (Knees hips shoulders and low back), Muscle Pain (Generalized myalgia particularly neck low back and thigh muscles.) Skin: Reports: Bruising (Easily now since being on Eliquis for the last 3 days) Neurological: Reports: Dizziness, Headache, Difficulty Walking (Due to weakness), Weakness. Denies: Confusion, Numbness, Syncope, Tingling Psychiatric: Reports: No Symptoms Hematologic/Lymphatic: Reports: No Symptoms Immunologic: Reports: No Symptoms ED EXAM, GENERAL - Physical Exam Exam: See Below Exam Limited By: No Limitations General Appearance: Alert, WD/WN, No Apparent Distress, Other (Temperature is currently 36.4 degrees. Heart rate 92 in sinus respiratory is 18 with O2 sats of 97% on 2 L/min by nasal cannula. BP is 144/70) Eye Exam: Bilateral Eye: Normal Inspection (No blepharal pallor or scleral icterus), PERRL Ears: Normal TMs Nose: Nasal Drainage Throat/Mouth: Normal Lips, Inflammation, Other (Posterior oropharynx and uvula are erythematous from coughing so much. No exudate noted.) Head: Atraumatic, Normocephalic Neck: Normal Inspection, Supple, Non-Tender, Full Range of Motion, Limited Range of Motion (Does have some crepitus on lateral rotation and flexion.), Tender Lateral. No: Lymphadenopathy (L), Lymphadenopathy (R) Respiratory/Chest: No Respiratory Distress, Rhonchi (Rhonchi both lower lobes little worse on the left side as compared to the right. Anterior upper lungs sound clear.) Cardiovascular: Normal Peripheral Pulses, Regular Rate, Rhythm, No Edema, No Gallop, No Murmur, No Rub Peripheral Pulses: 1+: Posterior Tibial (L), Posterior Tibial (R), Dorsalis Pedis (L), Dorsalis Pedis (R), 2+: Carotid (L), Carotid (R) GI/Abdominal: Normal Bowel Sounds, Soft, Non-Tender, No Organomegaly, No Mass, Pelvis Stable, Distended (Diffusely distended tympany to percussion upper abdomen combined with aerophagia.), Hernia (Is a large paramidline ventral hernia on the left superior to the umbilicus.) Back Exam: Normal Inspection. No: CVA Tenderness (L), CVA Tenderness (R), Vertebral Tenderness Extremities: Normal Inspection, Normal Range of Motion, Non-Tender, No Pedal Edema Neurological: Alert, Oriented, CN II-XII Intact, Normal Cognition. No: Normal Gait (Not tested) Psychiatric: Normal Affect, Normal Mood Skin Exam: Warm, Dry, Intact, Normal Color, No Rash #1 Interpretation EKG Date: 02/09/21 Time: 08:17 Rhythm: NSR Rate (Beats/Min): 88 [place]: Normal P-Wave: Present QRS: Other (There is a early R wave transition consider right ventricular perjury versus septal hypertrophy pattern. Nonspecific intraventricular conduction delay with delta-like waves in V2.) ST-T: Other (Mild T wave inversion noted in leads III and aVF consider inferior wall ischemia) QT: Normal EKG Interpretation Comments: Abnormal ECG Course - Vital Signs Last Recorded V/S: Last Vital Signs Temp 36.4 C 02/09/21 07:45 Pulse 92 02/09/21 07:45 Resp 18 02/09/21 07:45 BP 144/70 H 02/09/21 07:45 Pulse Ox 97 02/09/21 07:45 - Orders/Labs/Meds Orders: Active Orders 24 hr Category Date Time Status Blood Glucose Check, Bedside [RC] ONETIME Care 02/09/21 08:06 Active BLOOD CULTURE [MREF] Stat Lab 02/09/21 09:15 Received BLOOD CULTURE [MREF] Stat Lab 02/09/21 09:25 Received HEPATIC FUNCTION PANEL,HFP [CHEM] DAILY Lab 02/10/21 09:45 Ordered HEPATIC FUNCTION PANEL,[facility] [CHEM] DAILY Lab 02/11/21 09:45 Ordered HEPATIC FUNCTION PANEL,HFP [CHEM] DAILY Lab 02/12/21 09:45 Ordered HEPATIC FUNCTION PANEL,HFP [CHEM] DAILY Lab 02/13/21 09:45 Ordered HEPATIC FUNCTION PANEL,HFP [CHEM] Stat Lab 02/09/21 08:30 Received URINALYSIS W/MICROSCOPIC [UA W/MICROSCOPIC] [URIN] Stat Lab 02/09/21 08:06 Ordered Sodium Chloride 0.9% [Normal Saline] 1,000 ml Med 02/09/21 08:15 Active IV ASDIRECTED Blood Culture x2 Reflex Set [OM.PC] Stat Oth 02/09/21 08:06 Ordered Medication Orders Sodium Chloride (Normal Saline) 1,000 mls @ 100 mls/hr IV ASDIRECTED JANNA Last Admin: 02/09/21 08:49 Dose: 100 mls/hr Documented by: HUSSAIN Remdesivir 200 mg/ Sodium (Chloride) 250 mls @ 250 mls/hr IV ONETIME ONE Stop: 02/09/21 10:59 Last Admin: 02/09/21 10:06 Dose: 250 mls/hr Documented by: HUSSAIN Labs: Laboratory Tests 02/09/21 02/09/21 02/09/21 Range/Units 08:09 08:30 08:30 WBC 12.67 H (4.23-9.07) K/mm3 RBC 4.34 L (4.63-6.08) M/mm3 Hgb 13.0 L (13.7-17.5) gm/dl Hct 38.4 L (40.1-51.0) % MCV 88.5 (79.0-92.2) fl MCH 30.0 (25.7-32.2) pg MCHC 33.9 (32.2-35.5) g/dl RDW Std Deviation 42.6 (35.1-43.9) fL Plt Count 389 H (163-337) K/mm3 MPV 8.4 L (9.4-12.3) fl Neut % (Auto) 84.2 H (34.0-67.9) % Lymph % (Auto) 5.9 L (21.8-53.1) % [place] % (Auto) 8.7 (5.3-12.2) % Eos % (Auto) 0.6 L (0.8-7.0) Baso % (Auto) 0.2 (0.1-1.2) % Neut # (Auto) 10.67 H (1.78-5.38) K/mm3 Lymph # (Auto) 0.75 L (1.32-3.57) K/mm3 [place] # (Auto) 1.10 H (0.30-0.82) K/mm3 Eos # (Auto) 0.08 (0.04-0.54) K/mm3 Baso # (Auto) 0.02 (0.01-0.08) K/mm3 PT 14.6 H (9.7-12.0) SECONDS INR 1.37 APTT 25.9 (21.7-31.4) SECONDS D-Dimer, Quantitative (0.19-0.50) mg/L Puncture Site Lt radial ABG pH 7.46 H (7.35-7.45) ABG pCO2 30.9 L (35.0-45.0) mmHg ABG pO2 84.0 (80.0-100.0) mmHg ABG HCO3 21.5 L (22.0-26.0) meq/L ABG O2 Saturation 96.5 (96.0-97.0) % ABG Base Excess -1.0 (-2-2.0) Lul Test Positive O2 Delivery Device Nasal cannula Oxygen Flow Rate 3.0 Sodium (136-145) mEq/L Potassium (3.5-5.1) mEq/L Chloride (98-107) mEq/L Carbon Dioxide (21-32) mEq/L Anion Gap (5-15) BUN (7-18) mg/dL Creatinine (0.7-1.3) mg/dL Est Cr Clr Drug Dosing mL/min Estimated GFR (MDRD) (>60) mL/min BUN/Creatinine Ratio (14-18) Glucose (70-99) mg/dL POC Glucose (70-99) mg/dL Lactic Acid (0.4-2.0) mmol/L Calcium (8.5-10.1) mg/dL Magnesium (1.8-2.4) mg/dL Ferritin (26-388) ng/ml Total Bilirubin (0.2-1.0) mg/dL AST (15-37) U/L ALT (16-63) U/L Alkaline Phosphatase (46-116) U/L Lactate Dehydrogenase (85-227) U/L Troponin I (0.00-0.056) ng/mL C-Reactive Protein (<1.0) mg/dL NT-Pro-B Natriuret Pep (0-125) pg/mL Total Protein (6.4-8.2) g/dl Albumin (3.4-5.0) g/dl Globulin gm/dL Albumin/Globulin Ratio (1-2) 02/09/21 02/09/21 02/09/21 Range/Units 08:30 08:30 08:30 WBC (4.23-9.07) K/mm3 RBC (4.63-6.08) M/mm3 Hgb (13.7-17.5) gm/dl Hct (40.1-51.0) % MCV (79.0-92.2) fl MCH (25.7-32.2) pg MCHC (32.2-35.5) g/dl RDW Std Deviation (35.1-43.9) fL Plt Count (163-337) K/mm3 MPV (9.4-12.3) fl Neut % (Auto) (34.0-67.9) % Lymph % (Auto) (21.8-53.1) % [place] % (Auto) (5.3-12.2) % Eos % (Auto) (0.8-7.0) Baso % (Auto) (0.1-1.2) % Neut # (Auto) (1.78-5.38) K/mm3 Lymph # (Auto) (1.32-3.57) K/mm3 [place] # (Auto) (0.30-0.82) K/mm3 Eos # (Auto) (0.04-0.54) K/mm3 Baso # (Auto) (0.01-0.08) K/mm3 PT (9.7-12.0) SECONDS INR APTT (21.7-31.4) SECONDS D-Dimer, Quantitative 4.60 H (0.19-0.50) mg/L Puncture Site ABG pH (7.35-7.45) ABG pCO2 (35.0-45.0) mmHg ABG pO2 (80.0-100.0) mmHg ABG HCO3 (22.0-26.0) meq/L ABG O2 Saturation (96.0-97.0) % ABG Base Excess (-2-2.0) Lul Test O2 Delivery Device Oxygen Flow Rate Sodium 135 L (136-145) mEq/L Potassium 4.0 (3.5-5.1) mEq/L Chloride 99 (98-107) mEq/L Carbon Dioxide 25 (21-32) mEq/L Anion Gap 15.0 (5-15) BUN 11 (7-18) mg/dL Creatinine 0.9 (0.7-1.3) mg/dL Est Cr Clr Drug Dosing 80.18 mL/min Estimated GFR (MDRD) > 60 (>60) mL/min BUN/Creatinine Ratio 12.2 L (14-18) Glucose 99 (70-99) mg/dL POC Glucose (70-99) mg/dL Lactic Acid (0.4-2.0) mmol/L Calcium 9.0 (8.5-10.1) mg/dL Magnesium 1.7 L (1.8-2.4) mg/dL Ferritin (26-388) ng/ml Total Bilirubin 0.8 (0.2-1.0) mg/dL AST 58 H (15-37) U/L ALT 75 H (16-63) U/L Alkaline Phosphatase 98 (46-116) U/L Lactate Dehydrogenase 216 (85-227) U/L Troponin I < 0.017 (0.00-0.056) ng/mL C-Reactive Protein 22.0 H* (<1.0) mg/dL NT-Pro-B Natriuret Pep 64 (0-125) pg/mL Total Protein 7.4 (6.4-8.2) g/dl Albumin 2.3 L (3.4-5.0) g/dl Globulin 5.1 gm/dL Albumin/Globulin Ratio 0.5 L (1-2) 02/09/21 02/09/21 02/09/21 Range/Units 08:30 09:09 09:15 WBC (4.23-9.07) K/mm3 RBC (4.63-6.08) M/mm3 Hgb (13.7-17.5) gm/dl Hct (40.1-51.0) % MCV (79.0-92.2) fl MCH (25.7-32.2) pg MCHC (32.2-35.5) g/dl RDW Std Deviation (35.1-43.9) fL Plt Count (163-337) K/mm3 MPV (9.4-12.3) fl Neut % (Auto) (34.0-67.9) % Lymph % (Auto) (21.8-53.1) % [place] % (Auto) (5.3-12.2) % Eos % (Auto) (0.8-7.0) Baso % (Auto) (0.1-1.2) % Neut # (Auto) (1.78-5.38) K/mm3 Lymph # (Auto) (1.32-3.57) K/mm3 [place] # (Auto) (0.30-0.82) K/mm3 Eos # (Auto) (0.04-0.54) K/mm3 Baso # (Auto) (0.01-0.08) K/mm3 PT (9.7-12.0) SECONDS INR APTT (21.7-31.4) SECONDS D-Dimer, Quantitative (0.19-0.50) mg/L Puncture Site ABG pH (7.35-7.45) ABG pCO2 (35.0-45.0) mmHg ABG pO2 (80.0-100.0) mmHg ABG HCO3 (22.0-26.0) meq/L ABG O2 Saturation (96.0-97.0) % ABG Base Excess (-2-2.0) Lul Test O2 Delivery Device Oxygen Flow Rate Sodium (136-145) mEq/L Potassium (3.5-5.1) mEq/L Chloride (98-107) mEq/L Carbon Dioxide (21-32) mEq/L Anion Gap (5-15) BUN (7-18) mg/dL Creatinine (0.7-1.3) mg/dL Est Cr Clr Drug Dosing mL/min Estimated GFR (MDRD) (>60) mL/min BUN/Creatinine Ratio (14-18) Glucose (70-99) mg/dL POC Glucose 99 (70-99) mg/dL Lactic Acid 0.9 (0.4-2.0) mmol/L Calcium (8.5-10.1) mg/dL Magnesium (1.8-2.4) mg/dL Ferritin 890 H (26-388) ng/ml Total Bilirubin (0.2-1.0) mg/dL AST (15-37) U/L ALT (16-63) U/L Alkaline Phosphatase (46-116) U/L Lactate Dehydrogenase (85-227) U/L Troponin I (0.00-0.056) ng/mL C-Reactive Protein (<1.0) mg/dL NT-Pro-B Natriuret Pep (0-125) pg/mL Total Protein (6.4-8.2) g/dl Albumin (3.4-5.0) g/dl Globulin gm/dL Albumin/Globulin Ratio (1-2) Meds: Medications Generic Name Dose Route Start Last Admin Trade Name Freq PRN Reason Stop Dose Admin Sodium Chloride 1,000 mls @ 100 mls/hr 02/09/21 08:15 02/09/21 08:49 Normal Saline IV 100 mls/hr ASDIRECTED JANNA Administration Remdesivir 200 mg/ Sodium 250 mls @ 250 mls/hr 02/09/21 10:00 02/09/21 10:06 Chloride IV 02/09/21 10:59 250 mls/hr ONETIME ONE Administration Discontinued Medications Generic Name Dose Route Start Last Admin Trade Name Freq PRN Reason Stop Dose Admin Metoclopramide HCl 7.5 mg 02/09/21 08:05 02/09/21 08:47 Metoclopramide 10 Mg/2 Ml Sdv IVPUSH 02/09/21 08:06 7.5 mg ONETIME ONE Administration - Radiology Interpretation Free Text/Narrative:: 70-year-old male presents to the ED with known COVID-19 illness diagnosed January 22. He is an insulin-dependent type 2 diabetic. Blood sugars have been anywhere between 70 and 280 but has not been checking very regularly since he is not been able to eat hardly at all for the last 10 days. Illnesses been complicated by diarrhea which has been better the last 3 to 4 days. No with nausea or vomiting. Significant nasal congestion. Paroxysmal intermittent cough. Seen through the ED 3 days ago diagnosed with a segmental branch pulmonary embolism right lower lobe. He is thus on Eliquis for 10 mg twice daily. This morning his O2 sats were 85% after getting up although he did sleep well overnight. Paramedics got O2 sats between 88 and 89%. They placed him on 4 L/min by nasal cannula. Here we were able to wean him down to 2 L/min by nasal cannula to achieve sats of 97% room air. Patient feels much better and feels he can breathe better. It appears he is going to need to be admitted to the hospital due to hypoxemia and worsening COVID-19 illness. Risk factors are obesity, diabetes using insulin, and mild COPD. He also has hypertension. Plan COVID-19 work-up to be done to include blood cultures x2 and an ABG. He is a candidate potentially for remdesivir and steroids although his blood sugars will be markedly elevated on dexamethasone. Planning for admission to the hospital. - Re-Assessments/Exams Free Text/Narrative Re-Assessment/Exam: 02/09/21 09:01 O2 sats are 94% on 2 L. BP is down to 129/62.Labs reveal an elevated white count at 12.67 with 84.2% neutrophils on the auto differential. Hemoglobin is 13.0 with hematocrit of 38.4 platelet count elevated at 389,000. Portable chest x-ray reveals heart and mediastinum to be normal. Tortuous thoracic aorta appreciated. Patient has infiltrates in both lower lobes of his lungs essentially unchanged from 3 days ago. Perhaps more consolidation right lower lobe. 02/09/21 09:38 PT is 14.6 with an INR of 1.37. PTT is 25.9 D-dimer remains elevated at 4.60. Sodium 135 with a potassium of 4.0 chloride 99 with a bicarb of 25 anion gap is 15.0. BUN is 11 with a creatinine of 0.9 and a GFR greater than 60. Glucose is 99 bedside glucose was 99. Magnesium is 1.7 slightly low. Liver function shows a bilirubin of 0.8 mildly elevated AST at 58 .mildly elevated ALT at 75 alkaline phosphatase is 98. LDH is 216. Troponin I is less than 0.017 C-reactive protein is 22.0 total protein is 7.4 with an albumin fraction of 2.3 which is low. Will proceed with remdesivir 200 mg IV. Patient will be admitted to the hospital. I will speak with Dr. Escalante receptionist airline lounge hospitalist at this time. 02/09/21 09:45 I have spoken with Dr. Escalante and the patient will be admitted to the [facility] floor. I believe he could tolerate dexamethasone but I will leave this up to Dr. Escalante. Departure - Departure Time of Disposition: 10:38 Disposition: Admitted As Inpatient 65 Condition: Fair Clinical Impression: Pneumonia due to COVID-19 virus, Hypoxia, Pulmonary embolism on left - Discharge Information *PRESCRIPTION DRUG MONITORING PROGRAM REVIEWED*: Not Applicable *COPY OF PRESCRIPTION DRUG MONITORING REPORT IN PATIENT ALEJANDRA: Not Applicable Sepsis Event Note (ED) - Evaluation Sepsis Screening Result: No Definite Risk - Focused Exam Vital Signs: Vital Signs Temp Pulse Resp BP Pulse Ox 02/09/21 07:45 36.4 C 92 18 144/70 H 97 - My Orders Last 24 Hours: My Active Orders 02/09/21 08:06 Blood Glucose Check, Bedside [RC] ONETIME URINALYSIS W/MICROSCOPIC [UA W/MICROSCOPIC] [URIN] Stat Blood Culture x2 Reflex Set [OM.PC] Stat 02/09/21 08:15 Sodium Chloride 0.9% [Normal Saline] 1,000 ml IV ASDIRECTED 02/09/21 08:30 HEPATIC FUNCTION PANEL,[facility] [CHEM] Stat 02/09/21 09:15 BLOOD CULTURE [MREF] Stat 02/09/21 09:25 BLOOD CULTURE [MREF] Stat 02/10/21 09:45 HEPATIC FUNCTION PANEL,HFP [CHEM] DAILY 02/11/21 09:45 HEPATIC FUNCTION PANEL,HFP [CHEM] DAILY 02/12/21 09:45 HEPATIC FUNCTION PANEL,HFP [CHEM] DAILY 02/13/21 09:45 HEPATIC FUNCTION PANEL,HFP [CHEM] DAILY - Assessment/Plan Last 24 Hours: My Active Orders 02/09/21 08:06 Blood Glucose Check, Bedside [RC] ONETIME URINALYSIS W/MICROSCOPIC [UA W/MICROSCOPIC] [URIN] Stat Blood Culture x2 Reflex Set [OM.PC] Stat 02/09/21 08:15 Sodium Chloride 0.9% [Normal Saline] 1,000 ml IV ASDIRECTED 02/09/21 08:30 HEPATIC FUNCTION PANEL,[facility] [CHEM] Stat 02/09/21 09:15 BLOOD CULTURE [MREF] Stat 02/09/21 09:25 BLOOD CULTURE [MREF] Stat 02/10/21 09:45 HEPATIC FUNCTION PANEL,HFP [CHEM] DAILY 02/11/21 09:45 HEPATIC FUNCTION PANEL,HFP [CHEM] DAILY 02/12/21 09:45 HEPATIC FUNCTION PANEL,HFP [CHEM] DAILY 02/13/21 09:45 HEPATIC FUNCTION PANEL,HFP [CHEM] DAILY
[2021-02-09] MEDS ORDERED: Sodium Chloride 0.9% 1,000 ML IV SCH (08:15)
[2021-02-09] MEDS ORDERED: REMDESIVIR 200 MG in Sodium Chloride 0.9% 250 ML IV ONE ×2 (09:39→10:00)
--- NOTE | 2021-02-09 10:16 | CR ---
Chest: Frontal view of the chest was obtained. Comparison: Prior chest x-ray of 02/06/21. Heart size and mediastinum are within normal limits. Patchy areas of increased density are seen within both lung bases which remain stable from prior exam. No acute parenchymal change is otherwise seen. Bony structures are grossly intact. Impression: 1. Patchy areas of increased density within both lung bases which are stable from prior chest x-ray. 2. No appreciable change from previous study is seen. Diagnostic code #3
[2021-02-09] MEDS ORDERED: Ondansetron 4 MG/2 ML SDV IV PRN (12:20)
[2021-02-09] MEDS ORDERED: Ibuprofen 600 MG Tab PO PRN (12:20)
[2021-02-09] MEDS ORDERED: Acetaminophen 325 MG Tab PO PRN (12:20)
[2021-02-09] MEDS ORDERED: Albuterol 0.083% 2.5 MG/3 ML Neb Soln NEB PRN (12:20)
[2021-02-09] MEDS ORDERED: Benzonatate 100 MG Cap PO PRN (12:28)
--- NOTE | 2021-02-09 12:31 | PCM.HP.2 ---
H&P History of Present Illness - General Date of Service: 02/09/21 Admit Problem/Dx: Admission Diagnosis/Problem Admission Diagnosis/Problem Viral pneumonia - History of Present Illness Initial Comments - Free Text/Narative: 70-year-old male with history of type 2 diabetes controlled on insulin and Glucophage presents to the emergency department for the fourth time since he first was diagnosed with COVID-19 on January 22. Last this morning patient had oxygen saturations at home down to 85% on his home pulse oximeter and when EMS arrived his O2 sats were 88 to 89%. In the emergency department on 2 L/min via nasal cannula his oxygen saturations were between 95 and 96%. On February 06 patient was seen in the emergency department and found to have segmental branch emboli in his left lower lobe and was started on Eliquis 10 mg twice a day. Patient continues to cough bringing up very little mucus. He has had poor appetite because food tastes like "chemicals". Patient also has mild COPD, congestive heart failure, and obesity. He has had fever off and on and when I saw him on the floor his temperature was up to 101. There was some concern on chest x-ray of possible bacterial pneumonia on top of his Covid pneumonia. - Related Data Allergies/Adverse Reactions: Allergies Allergy/AdvReac Type Severity Reaction Status Date / Time No Known Allergies Allergy Verified 02/09/21 12:03 Home Medications: Home Meds Insulin Glarg,Human.Rec.Analog [Lantus Solostar] 60 units SQ BEDTIME 01/29/21 [History] lisinopriL [Prinivil] 10 mg PO DAILY 01/29/21 [History] metFORMIN HCl [Metformin HCl] 500 mg PO BID 01/29/21 [History] Benzonatate 100 mg PO TID PRN #21 capsule 02/06/21 [Rx] Apixaban [Eliquis] 10 mg PO BID 02/09/21 [History] Past Medical History HEENT History: Reports: Cataract, Impaired Vision Other HEENT History: wears eyeglasses, no surgery yet or the cataracts Cardiovascular History: Reports: Hypertension Respiratory History: Reports: PE Other Respiratory History: Diagnosed with a Pulmonary embolism in lung a couple days ago in the er Musculoskeletal History: Reports: Arthritis, Other (See Below) Other Musculoskeletal History: arthritis in knees states he needs a bilateral knee replacement Endocrine/Metabolic History: Reports: Diabetes, Type II, Obesity/BMI 30+ Do You Give Correction Boluses or Sliding Scale: No Oncologic (Cancer) History: Reports: Colon Other Oncologic History: Removed 8 inches off his small colon for colon cancers - Infectious Disease History Infectious Disease History: Reports: Chicken Pox, Measles, Mumps, Novel Coronavirus - Past Surgical History HEENT Surgical History: Reports: None Cardiovascular Surgical History: Reports: None Respiratory Surgical History: Reports: None GI Surgical History: Reports: Hernia, Abdominal, Other (See Below) Other GI Surgeries/Procedures: Colon CA surgery, 8" of bowel removed. Musculoskeletal Surgical History: Reports: Other (See Below) Other Musculoskeletal Surgeries/Procedures:: Pelvic Surgery Oncologic Surgical History: Reports: None Social & Family History - Family History Family Medical History: No Pertinent Family History - Tobacco Use Tobacco Use Status *Q: Never Tobacco User Second Hand Smoke Exposure: No - Caffeine Use Caffeine Use: Reports: Coffee - Recreational Drug Use Recreational Drug Use: No - Living Situation & Occupation Living situation: Reports: Occupation: Retired H&P Review of Systems - Review of Systems: Review Of Systems: Comprehensive ROS is negative, except as noted in HPI. Exam - Exam Exam: See Below - Vital Signs Vital Signs: Last Vital Signs Temp 97.6 F 02/09/21 07:45 Pulse 92 02/09/21 07:45 Resp 18 02/09/21 07:45 BP 144/70 H 02/09/21 07:45 Pulse Ox 97 02/09/21 07:45 Weight: 224 lb 13.944 oz - Exam Quality Assessment: Supplemental Oxygen General: Alert, Oriented, 4 HEENT: Conjunctiva Clear, Hearing Intact, Mucosa Moist & [place], Pupils Equal Neck: Supple, Trachea Midline, 2 Lungs: Normal Respiratory Effort, Rales (Bibasilar worse on the right) Cardiovascular: Regular Rate, Regular Rhythm GI/Abdominal Exam: Normal Bowel Sounds, Soft, Non-Tender, No Organomegaly Extremities: Normal Inspection, Normal Range of Motion, Non-Tender, No Pedal Edema, Normal Capillary Refill Skin: Warm, Dry, Intact Neuro Extensive - Mental Status: Alert, Oriented x3, Normal Mood/Affect, Normal Cognition, Memory Intact Psychiatric: Alert, Normal Affect, Normal Mood - Patient Data Lab Results Last 24 hrs: Laboratory Results - last 24 hr 02/09/21 02/09/21 02/09/21 Range/Units 08:09 08:30 08:30 WBC 12.67 H (4.23-9.07) K/mm3 RBC 4.34 L (4.63-6.08) M/mm3 Hgb 13.0 L (13.7-17.5) gm/dl Hct 38.4 L (40.1-51.0) % MCV 88.5 (79.0-92.2) fl MCH 30.0 (25.7-32.2) pg MCHC 33.9 (32.2-35.5) g/dl RDW Std Deviation 42.6 (35.1-43.9) fL Plt Count 389 H (163-337) K/mm3 MPV 8.4 L (9.4-12.3) fl Neut % (Auto) 84.2 H (34.0-67.9) % Lymph % (Auto) 5.9 L (21.8-53.1) % Wilkin % (Auto) 8.7 (5.3-12.2) % Eos % (Auto) 0.6 L (0.8-7.0) Baso % (Auto) 0.2 (0.1-1.2) % Neut # (Auto) 10.67 H (1.78-5.38) K/mm3 Lymph # (Auto) 0.75 L (1.32-3.57) K/mm3 Wilkin # (Auto) 1.10 H (0.30-0.82) K/mm3 Eos # (Auto) 0.08 (0.04-0.54) K/mm3 Baso # (Auto) 0.02 (0.01-0.08) K/mm3 PT 14.6 H (9.7-12.0) SECONDS INR 1.37 APTT 25.9 (21.7-31.4) SECONDS D-Dimer, Quantitative (0.19-0.50) mg/L Puncture Site Lt radial ABG pH 7.46 H (7.35-7.45) ABG pCO2 30.9 L (35.0-45.0) mmHg ABG pO2 84.0 (80.0-100.0) mmHg ABG HCO3 21.5 L (22.0-26.0) meq/L ABG O2 Saturation 96.5 (96.0-97.0) % ABG Base Excess -1.0 (-2-2.0) Lul Test Positive O2 Delivery Device Nasal cannula Oxygen Flow Rate 3.0 Sodium (136-145) mEq/L Potassium (3.5-5.1) mEq/L Chloride (98-107) mEq/L Carbon Dioxide (21-32) mEq/L Anion Gap (5-15) BUN (7-18) mg/dL Creatinine (0.7-1.3) mg/dL Est Cr Clr Drug Dosing mL/min Estimated GFR (MDRD) (>60) mL/min BUN/Creatinine Ratio (14-18) Glucose (70-99) mg/dL POC Glucose (70-99) mg/dL Lactic Acid (0.4-2.0) mmol/L Calcium (8.5-10.1) mg/dL Magnesium (1.8-2.4) mg/dL Ferritin (26-388) ng/ml Total Bilirubin (0.2-1.0) mg/dL Direct Bilirubin (0.0-0.2) mg/dl Indirect Bilirubin AST (15-37) U/L ALT (16-63) U/L Alkaline Phosphatase (46-116) U/L Lactate Dehydrogenase (85-227) U/L Troponin I (0.00-0.056) ng/mL C-Reactive Protein (<1.0) mg/dL NT-Pro-B Natriuret Pep (0-125) pg/mL Total Protein (6.4-8.2) g/dl Albumin (3.4-5.0) g/dl Globulin gm/dL Albumin/Globulin Ratio (1-2) 02/09/21 02/09/21 02/09/21 Range/Units 08:30 08:30 08:30 WBC (4.23-9.07) K/mm3 RBC (4.63-6.08) M/mm3 Hgb (13.7-17.5) gm/dl Hct (40.1-51.0) % MCV (79.0-92.2) fl MCH (25.7-32.2) pg MCHC (32.2-35.5) g/dl RDW Std Deviation (35.1-43.9) fL Plt Count (163-337) K/mm3 MPV (9.4-12.3) fl Neut % (Auto) (34.0-67.9) % Lymph % (Auto) (21.8-53.1) % Wilkin % (Auto) (5.3-12.2) % Eos % (Auto) (0.8-7.0) Baso % (Auto) (0.1-1.2) % Neut # (Auto) (1.78-5.38) K/mm3 Lymph # (Auto) (1.32-3.57) K/mm3 Wilkin # (Auto) (0.30-0.82) K/mm3 Eos # (Auto) (0.04-0.54) K/mm3 Baso # (Auto) (0.01-0.08) K/mm3 PT (9.7-12.0) SECONDS INR APTT (21.7-31.4) SECONDS D-Dimer, Quantitative 4.60 H (0.19-0.50) mg/L Puncture Site ABG pH (7.35-7.45) ABG pCO2 (35.0-45.0) mmHg ABG pO2 (80.0-100.0) mmHg ABG HCO3 (22.0-26.0) meq/L ABG O2 Saturation (96.0-97.0) % ABG Base Excess (-2-2.0) Lul Test O2 Delivery Device Oxygen Flow Rate Sodium 135 L (136-145) mEq/L Potassium 4.0 (3.5-5.1) mEq/L Chloride 99 (98-107) mEq/L Carbon Dioxide 25 (21-32) mEq/L Anion Gap 15.0 (5-15) BUN 11 (7-18) mg/dL Creatinine 0.9 (0.7-1.3) mg/dL Est Cr Clr Drug Dosing 80.18 mL/min Estimated GFR (MDRD) > 60 (>60) mL/min BUN/Creatinine Ratio 12.2 L (14-18) Glucose 99 (70-99) mg/dL POC Glucose (70-99) mg/dL Lactic Acid (0.4-2.0) mmol/L Calcium 9.0 (8.5-10.1) mg/dL Magnesium 1.7 L (1.8-2.4) mg/dL Ferritin (26-388) ng/ml Total Bilirubin 0.8 (0.2-1.0) mg/dL Direct Bilirubin (0.0-0.2) mg/dl Indirect Bilirubin AST 58 H (15-37) U/L ALT 75 H (16-63) U/L Alkaline Phosphatase 98 (46-116) U/L Lactate Dehydrogenase 216 (85-227) U/L Troponin I < 0.017 (0.00-0.056) ng/mL C-Reactive Protein 22.0 H* (<1.0) mg/dL NT-Pro-B Natriuret Pep 64 (0-125) pg/mL Total Protein 7.4 (6.4-8.2) g/dl Albumin 2.3 L (3.4-5.0) g/dl Globulin 5.1 gm/dL Albumin/Globulin Ratio 0.5 L (1-2) 02/09/21 02/09/21 02/09/21 Range/Units 08:30 08:30 09:09 WBC (4.23-9.07) K/mm3 RBC (4.63-6.08) M/mm3 Hgb (13.7-17.5) gm/dl Hct (40.1-51.0) % MCV (79.0-92.2) fl MCH (25.7-32.2) pg MCHC (32.2-35.5) g/dl RDW Std Deviation (35.1-43.9) fL Plt Count (163-337) K/mm3 MPV (9.4-12.3) fl Neut % (Auto) (34.0-67.9) % Lymph % (Auto) (21.8-53.1) % Wilkin % (Auto) (5.3-12.2) % Eos % (Auto) (0.8-7.0) Baso % (Auto) (0.1-1.2) % Neut # (Auto) (1.78-5.38) K/mm3 Lymph # (Auto) (1.32-3.57) K/mm3 Wilkin # (Auto) (0.30-0.82) K/mm3 Eos # (Auto) (0.04-0.54) K/mm3 Baso # (Auto) (0.01-0.08) K/mm3 PT (9.7-12.0) SECONDS INR APTT (21.7-31.4) SECONDS D-Dimer, Quantitative (0.19-0.50) mg/L Puncture Site ABG pH (7.35-7.45) ABG pCO2 (35.0-45.0) mmHg ABG pO2 (80.0-100.0) mmHg ABG HCO3 (22.0-26.0) meq/L ABG O2 Saturation (96.0-97.0) % ABG Base Excess (-2-2.0) Lul Test O2 Delivery Device Oxygen Flow Rate Sodium (136-145) mEq/L Potassium (3.5-5.1) mEq/L Chloride (98-107) mEq/L Carbon Dioxide (21-32) mEq/L Anion Gap (5-15) BUN (7-18) mg/dL Creatinine (0.7-1.3) mg/dL Est Cr Clr Drug Dosing mL/min Estimated GFR (MDRD) (>60) mL/min BUN/Creatinine Ratio (14-18) Glucose (70-99) mg/dL POC Glucose 99 (70-99) mg/dL Lactic Acid (0.4-2.0) mmol/L Calcium (8.5-10.1) mg/dL Magnesium (1.8-2.4) mg/dL Ferritin 890 H (26-388) ng/ml Total Bilirubin 0.7 (0.2-1.0) mg/dL Direct Bilirubin 0.40 H (0.0-0.2) mg/dl Indirect Bilirubin 0.30 AST 54 H (15-37) U/L ALT 73 H (16-63) U/L Alkaline Phosphatase 99 (46-116) U/L Lactate Dehydrogenase (85-227) U/L Troponin I (0.00-0.056) ng/mL C-Reactive Protein (<1.0) mg/dL NT-Pro-B Natriuret Pep (0-125) pg/mL Total Protein 7.4 (6.4-8.2) g/dl Albumin 2.4 L (3.4-5.0) g/dl Globulin 5.0 gm/dL Albumin/Globulin Ratio 0.5 L (1-2) 02/09/21 Range/Units 09:15 WBC (4.23-9.07) K/mm3 RBC (4.63-6.08) M/mm3 Hgb (13.7-17.5) gm/dl Hct (40.1-51.0) % MCV (79.0-92.2) fl MCH (25.7-32.2) pg MCHC (32.2-35.5) g/dl RDW Std Deviation (35.1-43.9) fL Plt Count (163-337) K/mm3 MPV (9.4-12.3) fl Neut % (Auto) (34.0-67.9) % Lymph % (Auto) (21.8-53.1) % Wilkin % (Auto) (5.3-12.2) % Eos % (Auto) (0.8-7.0) Baso % (Auto) (0.1-1.2) % Neut # (Auto) (1.78-5.38) K/mm3 Lymph # (Auto) (1.32-3.57) K/mm3 Wilkin # (Auto) (0.30-0.82) K/mm3 Eos # (Auto) (0.04-0.54) K/mm3 Baso # (Auto) (0.01-0.08) K/mm3 PT (9.7-12.0) SECONDS INR APTT (21.7-31.4) SECONDS D-Dimer, Quantitative (0.19-0.50) mg/L Puncture Site ABG pH (7.35-7.45) ABG pCO2 (35.0-45.0) mmHg ABG pO2 (80.0-100.0) mmHg ABG HCO3 (22.0-26.0) meq/L ABG O2 Saturation (96.0-97.0) % ABG Base Excess (-2-2.0) Lul Test O2 Delivery Device Oxygen Flow Rate Sodium (136-145) mEq/L Potassium (3.5-5.1) mEq/L Chloride (98-107) mEq/L Carbon Dioxide (21-32) mEq/L Anion Gap (5-15) BUN (7-18) mg/dL Creatinine (0.7-1.3) mg/dL Est Cr Clr Drug Dosing mL/min Estimated GFR (MDRD) (>60) mL/min BUN/Creatinine Ratio (14-18) Glucose (70-99) mg/dL POC Glucose (70-99) mg/dL Lactic Acid 0.9 (0.4-2.0) mmol/L Calcium (8.5-10.1) mg/dL Magnesium (1.8-2.4) mg/dL Ferritin (26-388) ng/ml Total Bilirubin (0.2-1.0) mg/dL Direct Bilirubin (0.0-0.2) mg/dl Indirect Bilirubin AST (15-37) U/L ALT (16-63) U/L Alkaline Phosphatase (46-116) U/L Lactate Dehydrogenase (85-227) U/L Troponin I (0.00-0.056) ng/mL C-Reactive Protein (<1.0) mg/dL NT-Pro-B Natriuret Pep (0-125) pg/mL Total Protein (6.4-8.2) g/dl Albumin (3.4-5.0) g/dl Globulin gm/dL Albumin/Globulin Ratio (1-2) Result Diagrams: 02/09/21 08:30 02/09/21 08:30 Imaging Impressions Last 24 hrs: Chest x-ray: Patchy infiltrates bilaterally Sepsis Event Note - Evaluation Sepsis Screening Result: No Definite Risk - Focused Exam Vital Signs: Vital Signs Temp Pulse Resp BP Pulse Ox 02/09/21 07:45 97.6 F 92 18 144/70 H 97 - Problem List (1) Diabetes mellitus type 2 in obese SNOMED Code(s): 06576531 ICD Code: E11.69 - TYPE 2 DIABETES MELLITUS WITH OTHER SPECIFIED COMPLICATION; E66.9 - OBESITY, UNSPECIFIED Status: Acute Current Visit: Yes (2) Pneumonia due to COVID-19 virus SNOMED Code(s): 929392643661584870 ICD Code: U07.1 - COVID-19; J12.82 - PNEUMONIA DUE TO CORONAVIRUS DISEASE 2019 Status: Acute Current Visit: Yes (3) Pulmonary embolism on left SNOMED Code(s): 35311992 ICD Code: I26.99 - OTHER PULMONARY EMBOLISM WITHOUT ACUTE COR PULMONALE Status: Acute Current Visit: Yes Problem List Initiated/Reviewed/Updated: Yes Orders Last 24hrs: Active Orders 24 hr Category Date Time Status Admission Status [Patient Status] [ADT] Routine ADT 02/09/21 09:46 Active Blood Glucose Check, Bedside [RC] ONETIME Care 02/09/21 08:06 Active Blood Glucose Check, Bedside [RC] WITHMEALSANDBED Care 02/09/21 12:29 Ordered CPAP Noctural Home [RT BiPAP/CPAP] [RC] ASDIRECTED Care 02/09/21 12:19 Ordered Nurse Communication: Isolation [RC] ASDIRECTED Care 02/09/21 12:24 Ordered Oxygen Therapy [RC] PRN Care 02/09/21 12:20 Ordered RT Aerosol Therapy [RC] ASDIRECTED Care 02/09/21 12:22 Ordered Up ad Citlali [RC] ASDIRECTED Care 02/09/21 12:20 Ordered VTE/DVT Education [RC] PER UNIT ROUTINE Care 02/09/21 12:20 Ordered Vital Signs [RC] Q4H Care 02/09/21 12:20 Ordered Consistent Carbohydrate Diet [DIET] Diet 02/09/21 Dinner Ordered BLOOD CULTURE [MREF] Stat Lab 02/09/21 09:15 Received BLOOD CULTURE [MREF] Stat Lab 02/09/21 09:25 Received C-REACTIVE PROTEIN [CHEM] AM Lab 02/10/21 05:11 Ordered C-REACTIVE PROTEIN [CHEM] AM Lab 02/11/21 05:11 Ordered C-REACTIVE PROTEIN [CHEM] AM Lab 02/12/21 05:11 Ordered C-REACTIVE PROTEIN [CHEM] AM Lab 02/13/21 05:11 Ordered C-REACTIVE PROTEIN [CHEM] AM Lab 02/14/21 05:11 Ordered CBC WITH AUTO DIFF [HEME] AM Lab 02/10/21 05:11 Ordered CBC WITH AUTO DIFF [HEME] AM Lab 02/11/21 05:11 Ordered CBC WITH AUTO DIFF [HEME] AM Lab 02/12/21 05:11 Ordered CBC WITH AUTO DIFF [HEME] AM Lab 02/13/21 05:11 Ordered CBC WITH AUTO DIFF [HEME] AM Lab 02/14/21 05:11 Ordered CMP [COMPREHENSIVE METABOLIC PN,CMP] [CHEM] AM Lab 02/10/21 05:11 Ordered CMP [COMPREHENSIVE METABOLIC PN,CMP] [CHEM] AM Lab 02/11/21 05:11 Ordered CMP [COMPREHENSIVE METABOLIC PN,CMP] [CHEM] AM Lab 02/12/21 05:11 Ordered CMP [COMPREHENSIVE METABOLIC PN,CMP] [CHEM] AM Lab 02/13/21 05:11 Ordered CMP [COMPREHENSIVE METABOLIC PN,CMP] [CHEM] AM Lab 02/14/21 05:11 Ordered MAGNESIUM [CHEM] AM Lab 02/10/21 05:11 Ordered MAGNESIUM [CHEM] AM Lab 02/11/21 05:11 Ordered MAGNESIUM [CHEM] AM Lab 02/12/21 05:11 Ordered MAGNESIUM [CHEM] AM Lab 02/13/21 05:11 Ordered MAGNESIUM [CHEM] AM Lab 02/14/21 05:11 Ordered PHOSPHORUS [CHEM] AM Lab 02/10/21 05:11 Ordered PROCALCITONIN [REF] Routine Lab 02/09/21 12:22 Ordered URINALYSIS W/MICROSCOPIC [UA W/MICROSCOPIC] [URIN] Stat Lab 02/09/21 08:06 Ordered Acetaminophen [TylenoL] Med 02/09/21 12:20 Ordered 650 mg PO Q4H PRN Albuterol [Proventil Neb Soln] Med 02/09/21 12:20 Ordered 2.5 mg NEB Q2H PRN Apixaban [Eliquis] Med 02/09/21 21:00 Ordered 10 mg PO BID Azithromycin [Zithromax] 500 mg Med 02/09/21 12:30 Ordered Sodium Chloride 0.9% [Normal Saline (AdvBag)] 250 ml IV Q24H Benzonatate [Tessalon Perles] Med 02/09/21 12:28 Ordered 100 mg PO TID PRN Ibuprofen [Motrin] Med 02/09/21 12:20 Ordered 600 mg PO Q6H PRN Insulin Glarg,Human.Rec.Analog Med 02/09/21 21:00 Ordered 60 units SQ BEDTIME Insulin Lispro [HumaLOG] Med 02/09/21 17:00 Ordered See Protocol SUBCUT QIDACANDBED Ondansetron [Zofran] Med 02/09/21 12:20 Ordered 4 mg IV Q4H PRN Remdesivir 100 mg Med 02/10/21 10:00 Ordered Sodium Chloride 0.9% [Normal Saline] 100 ml IV Q24H Sodium Chloride 0.9% [Normal Saline] 1,000 ml Med 02/09/21 08:15 Active IV ASDIRECTED cefTRIAXone [Rocephin] 2 gm Med 02/09/21 12:30 Ordered Sodium Chloride 0.9% [Normal Saline] 100 ml IV Q24H dexAMETHasone [Decadron] Med 02/09/21 12:30 Ordered 6 mg IVPUSH DAILY lisinopriL [Prinivil] Med 02/10/21 09:00 Ordered 10 mg PO DAILY Blood Culture x2 Reflex Set [OM.PC] Stat Oth 02/09/21 08:06 Ordered Isolation [COMM] Stat Oth 02/09/21 12:22 Ordered Resuscitation Status Routine Resus Stat 02/09/21 12:20 Ordered Medication Orders Acetaminophen (Acetaminophen 325 Mg Tab) 650 mg PO Q4H PRN PRN Reason: Pain (Mild 1-3)/fever Albuterol (Albuterol 0.083% 2.5 Mg/3 Ml Neb Soln) 2.5 mg NEB Q2H PRN PRN Reason: Shortness Of Breath/wheezing Benzonatate (Benzonatate 100 Mg Cap) 100 mg PO TID PRN PRN Reason: Cough Dexamethasone (Dexamethasone 10 Mg/Ml Sdv) 6 mg IVPUSH DAILY [facility] Stop: 02/18/21 09:01 Sodium Chloride (Normal Saline) 1,000 mls @ 100 mls/hr IV ASDIRECTED [facility] Last Admin: 02/09/21 08:49 Dose: 100 mls/hr Documented by: HUSSAIN Remdesivir 100 mg/ Sodium (Chloride) 100 mls @ 100 mls/hr IV Q24H [facility] Stop: 02/13/21 10:59 Ceftriaxone Sodium 2 gm/ (Sodium Chloride) 100 mls @ 200 mls/hr IV Q24H [facility] Stop: 02/13/21 12:59 Azithromycin 500 mg/ Sodium (Chloride) 250 mls @ 250 mls/hr IV Q24H [facility] Stop: 02/11/21 13:29 Ibuprofen (Ibuprofen 600 Mg Tab) 600 mg PO Q6H PRN PRN Reason: Pain (moderate 4-6) Insulin Human Lispro (Insulin Lispro 100 Unit/Ml 10 Ml Vial) 0 unit SUBCUT QIDACANDBED [facility]; Protocol Lisinopril (Lisinopril 10 Mg Tab) 10 mg PO DAILY [facility] Non-Formulary Medication (Apixaban [Eliquis]) 10 mg PO BID [facility] Non-Formulary Medication (Insulin Glarg,Human.Rec.Analog) 60 units SQ BEDTIME [facility] Ondansetron HCl (Ondansetron 4 Mg/2 Ml Sdv) 4 mg IV Q4H PRN PRN Reason: Nausea/Vomiting Assessment/Plan Comment:: 70-year-old male with history of diabetes and recent segmental pulmonary emboli in left lung returns to emergency department with worsening hypoxemia. Covid pneumonia with hypoxemia -Oxygen saturation in the mid 80s on room air -On 2 L per nasal cannula O2 with oxygen saturations in the mid 90s -Started on remdesivir in the emergency department -C-reactive protein 22, D-dimer 4.60, ferritin 890, lactic acid 0.9, WBC 12.67 -Start dexamethasone 6 mg IV daily -Incentive spirometer -Follow Covid labs in the morning Segmental pulmonary embolism on left side -Started on Eliquis on February 06 in the emergency department 10 mg twice daily -Continue Eliquis 10 mg twice daily Diabetes mellitus -Lantus 61 units daily and Metformin 500 mg twice daily -Bedside glucose 99 in the emergency department -Follow fingerstick blood sugar 4 times daily -Continue Lantus 60 units daily and stop Metformin while hospitalized -Sliding scale insulin, medium dose with NovoLog -Anticipate increase in blood sugar secondary to dexamethasone -Get hemoglobin A1c Mildly elevated liver enzymes -AST 58, ALT 75, alkaline phosphatase normal at 98, LDH 216 -Likely secondary to Covid infection, obesity, diabetes -Continue to follow while on remdesivir Hypertension -Mildly elevated in emergency department -Continue to monitor -Continue home meds of enalapril Mild hypomagnesemia1.7 -Replace magnesium with 2 g IV -Follow magnesium in the morning Possible history of mild congestive heart failure, mild COPD. No good history. CODE STATUS: Full code VTE prophylaxis with Eliquis - Mortality Measure Prognosis:: Good
[2021-02-09] MEDS: cefTRIAXone 2 GM in Sodium Chloride 0.9% 100 ML IV SCH (13:39)
[2021-02-09] MEDS: Dexamethasone 10 MG/ML SDV IVPUSH SCH (13:48)
[2021-02-09] MEDS: Azithromycin 500 MG in Sodium Chloride 0.9% 250 ML IV SCH (13:55)
[2021-02-09] MEDS: Insulin Lispro 100 UNIT/ML 10 ML Vial SUBCUT SCH ×2 (17:53→21:07)
[2021-02-09] MEDS ORDERED: Magnesium Sulfate/Water 2 GM in Premix Bag 1 BAG IV ONE (20:25)
[2021-02-09] MEDS ORDERED: Insulin Glarg,Human.Rec.Analog 100 Unit/ML SUBCUT SCH (21:00)
[2021-02-09] MEDS: Apixaban 5 MG Tab PO SCH (21:05)
[2021-02-09] MEDS: Insulin Glarg,Human.Rec.Analog 100 Unit/ML SUBCUT SCH (21:05)
[2021-02-10] MEDS: Insulin Lispro 100 UNIT/ML 10 ML Vial SUBCUT SCH ×4 (07:55→21:15)
[2021-02-10] MEDS: Apixaban 5 MG Tab PO SCH ×2 (07:59→21:15)
[2021-02-10] MEDS: Lisinopril 10 MG Tab PO SCH (07:59)
[2021-02-10] MEDS: Dexamethasone 10 MG/ML SDV IVPUSH SCH (08:00)
[2021-02-10] MEDS: REMDESIVIR 100 MG in Sodium Chloride 0.9% 100 ML IV SCH (10:14)
[2021-02-10 10:27] LABS: HEMOGLOBIN A1C 8.1 %
[2021-02-10] MEDS: Azithromycin 500 MG in Sodium Chloride 0.9% 250 ML IV SCH (11:38)
[2021-02-10] MEDS: cefTRIAXone 2 GM in Sodium Chloride 0.9% 100 ML IV SCH (13:32)
--- NOTE | 2021-02-10 15:47 | PCM.PN ---
- General Info Date of Service: 02/10/21 Admission Dx/Problem (Free Text): Admission Diagnosis/Problem Admission Diagnosis/Problem Viral pneumonia Subjective Update: Patient is doing well. He states he is feeling better and his oxygenation has improved. He has been weaned down to room air. Functional Status: Reports: Pain Controlled - Review of Systems General: Reports: No Symptoms HEENT: Reports: No Symptoms Pulmonary: Reports: No Symptoms Cardiovascular: Reports: No Symptoms Gastrointestinal: Reports: No Symptoms - Patient Data Vitals - Most Recent: Last Vital Signs Temp 98.2 F 02/10/21 11:10 Pulse 71 02/10/21 11:10 Resp 20 02/10/21 11:10 BP 124/89 02/10/21 11:10 Pulse Ox 96 02/10/21 13:41 Weight - Most Recent: 226 lb 1.6 oz I&O - Last 24 Hours: Intake & Output 02/10/21 02/10/21 02/10/21 06:59 14:59 22:59 Intake Total 550 0 Output Total 675 Balance -125 0 Lab Results Last 24 Hours: Laboratory Results - last 24 hr 02/09/21 02/09/21 02/09/21 Range/Units 08:30 17:26 21:02 WBC (4.23-9.07) K/mm3 RBC (4.63-6.08) M/mm3 Hgb (13.7-17.5) gm/dl Hct (40.1-51.0) % MCV (79.0-92.2) fl MCH (25.7-32.2) pg MCHC (32.2-35.5) g/dl RDW Std Deviation (35.1-43.9) fL Plt Count (163-337) K/mm3 MPV (9.4-12.3) fl Neut % (Auto) (34.0-67.9) % Lymph % (Auto) (21.8-53.1) % Sunflower % (Auto) (5.3-12.2) % Eos % (Auto) (0.8-7.0) Baso % (Auto) (0.1-1.2) % Neut # (Auto) (1.78-5.38) K/mm3 Lymph # (Auto) (1.32-3.57) K/mm3 Sunflower # (Auto) (0.30-0.82) K/mm3 Eos # (Auto) (0.04-0.54) K/mm3 Baso # (Auto) (0.01-0.08) K/mm3 Sodium (136-145) mEq/L Potassium (3.5-5.1) mEq/L Chloride (98-107) mEq/L Carbon Dioxide (21-32) mEq/L Anion Gap (5-15) BUN (7-18) mg/dL Creatinine (0.7-1.3) mg/dL Est Cr Clr Drug Dosing mL/min Estimated GFR (MDRD) (>60) mL/min BUN/Creatinine Ratio (14-18) Glucose (70-99) mg/dL POC Glucose 157 H 258 H (70-99) mg/dL Hemoglobin A1c ( - 5.6) % Calcium (8.5-10.1) mg/dL Phosphorus (2.6-4.7) mg/dL Magnesium (1.8-2.4) mg/dL Total Bilirubin (0.2-1.0) mg/dL AST (15-37) U/L ALT (16-63) U/L Alkaline Phosphatase (46-116) U/L C-Reactive Protein (<1.0) mg/dL Total Protein (6.4-8.2) g/dl Albumin (3.4-5.0) g/dl Globulin gm/dL Albumin/Globulin Ratio (1-2) Procalcitonin 0.43 H ng/mL 02/10/21 02/10/21 02/10/21 Range/Units 05:54 05:54 05:54 WBC 8.09 (4.23-9.07) K/mm3 RBC 4.23 L (4.63-6.08) M/mm3 Hgb 12.5 L (13.7-17.5) gm/dl Hct 37.3 L (40.1-51.0) % MCV 88.2 (79.0-92.2) fl MCH 29.6 (25.7-32.2) pg MCHC 33.5 (32.2-35.5) g/dl RDW Std Deviation 42.5 (35.1-43.9) fL Plt Count 386 H (163-337) K/mm3 MPV 8.6 L (9.4-12.3) fl Neut % (Auto) 74.1 H (34.0-67.9) % Lymph % (Auto) 13.7 L (21.8-53.1) % Sunflower % (Auto) 11.5 (5.3-12.2) % Eos % (Auto) 0.2 L (0.8-7.0) Baso % (Auto) 0.1 (0.1-1.2) % Neut # (Auto) 5.99 H (1.78-5.38) K/mm3 Lymph # (Auto) 1.11 L (1.32-3.57) K/mm3 Sunflower # (Auto) 0.93 H (0.30-0.82) K/mm3 Eos # (Auto) 0.02 L (0.04-0.54) K/mm3 Baso # (Auto) 0.01 (0.01-0.08) K/mm3 Sodium 135 L (136-145) mEq/L Potassium 5.0 (3.5-5.1) mEq/L Chloride 101 (98-107) mEq/L Carbon Dioxide 25 (21-32) mEq/L Anion Gap 14.0 (5-15) BUN 13 (7-18) mg/dL Creatinine 0.8 (0.7-1.3) mg/dL Est Cr Clr Drug Dosing 90.20 mL/min Estimated GFR (MDRD) > 60 (>60) mL/min BUN/Creatinine Ratio 16.3 (14-18) Glucose 231 H (70-99) mg/dL POC Glucose (70-99) mg/dL Hemoglobin A1c 8.1 H ( - 5.6) % Calcium 9.0 (8.5-10.1) mg/dL Phosphorus 3.8 (2.6-4.7) mg/dL Magnesium 2.2 (1.8-2.4) mg/dL Total Bilirubin 0.3 (0.2-1.0) mg/dL AST 38 H (15-37) U/L ALT 77 H (16-63) U/L Alkaline Phosphatase 99 (46-116) U/L C-Reactive Protein 19.3 H* (<1.0) mg/dL Total Protein 6.8 (6.4-8.2) g/dl Albumin 2.1 L (3.4-5.0) g/dl Globulin 4.7 gm/dL Albumin/Globulin Ratio 0.5 L (1-2) Procalcitonin ng/mL 02/10/21 02/10/21 Range/Units 06:39 11:06 WBC (4.23-9.07) K/mm3 RBC (4.63-6.08) M/mm3 Hgb (13.7-17.5) gm/dl Hct (40.1-51.0) % MCV (79.0-92.2) fl MCH (25.7-32.2) pg MCHC (32.2-35.5) g/dl RDW Std Deviation (35.1-43.9) fL Plt Count (163-337) K/mm3 MPV (9.4-12.3) fl Neut % (Auto) (34.0-67.9) % Lymph % (Auto) (21.8-53.1) % Sunflower % (Auto) (5.3-12.2) % Eos % (Auto) (0.8-7.0) Baso % (Auto) (0.1-1.2) % Neut # (Auto) (1.78-5.38) K/mm3 Lymph # (Auto) (1.32-3.57) K/mm3 Sunflower # (Auto) (0.30-0.82) K/mm3 Eos # (Auto) (0.04-0.54) K/mm3 Baso # (Auto) (0.01-0.08) K/mm3 Sodium (136-145) mEq/L Potassium (3.5-5.1) mEq/L Chloride (98-107) mEq/L Carbon Dioxide (21-32) mEq/L Anion Gap (5-15) BUN (7-18) mg/dL Creatinine (0.7-1.3) mg/dL Est Cr Clr Drug Dosing mL/min Estimated GFR (MDRD) (>60) mL/min BUN/Creatinine Ratio (14-18) Glucose (70-99) mg/dL POC Glucose 218 H 218 H (70-99) mg/dL Hemoglobin A1c ( - 5.6) % Calcium (8.5-10.1) mg/dL Phosphorus (2.6-4.7) mg/dL Magnesium (1.8-2.4) mg/dL Total Bilirubin (0.2-1.0) mg/dL AST (15-37) U/L ALT (16-63) U/L Alkaline Phosphatase (46-116) U/L C-Reactive Protein (<1.0) mg/dL Total Protein (6.4-8.2) g/dl Albumin (3.4-5.0) g/dl Globulin gm/dL Albumin/Globulin Ratio (1-2) Procalcitonin ng/mL Med Orders - Current: Current Medications Acetaminophen (Acetaminophen 325 Mg Tab) 650 mg PO Q4H PRN PRN Reason: Pain (Mild 1-3)/fever Albuterol (Albuterol 0.083% 2.5 Mg/3 Ml Neb Soln) 2.5 mg NEB Q2H PRN PRN Reason: Shortness Of Breath/wheezing Apixaban (Apixaban 5 Mg Tab) 10 mg PO BID COUNT INCLUDES THE [facility] Last Admin: 02/10/21 07:59 Dose: 10 mg Documented by: Benzonatate (Benzonatate 100 Mg Cap) 100 mg PO TID PRN PRN Reason: Cough Dexamethasone (Dexamethasone 10 Mg/Ml Sdv) 6 mg IVPUSH DAILY COUNT INCLUDES THE [facility] Stop: 02/18/21 09:01 Last Admin: 02/10/21 08:00 Dose: 6 mg Documented by: Remdesivir 100 mg/ Sodium (Chloride) 100 mls @ 100 mls/hr IV Q24H COUNT INCLUDES THE [facility] Stop: 02/13/21 10:59 Last Admin: 02/10/21 10:14 Dose: 100 mls/hr Documented by: Ceftriaxone Sodium 2 gm/ (Sodium Chloride) 100 mls @ 200 mls/hr IV Q24H COUNT INCLUDES THE [facility] Stop: 02/13/21 12:59 Last Admin: 02/10/21 13:32 Dose: 200 mls/hr Documented by: Azithromycin 500 mg/ Sodium (Chloride) 250 mls @ 250 mls/hr IV Q24H COUNT INCLUDES THE [facility] Stop: 02/11/21 13:29 Last Admin: 02/10/21 11:38 Dose: 250 mls/hr Documented by: Ibuprofen (Ibuprofen 600 Mg Tab) 600 mg PO Q6H PRN PRN Reason: Pain (moderate 4-6) Insulin Glargine (Insulin Glarg,Human.Rec.Analog 100 Unit/Ml) 60 unit SUBCUT BEDTIME COUNT INCLUDES THE [facility] Last Admin: 02/09/21 21:05 Dose: 60 units Documented by: Insulin Human Lispro (Insulin Lispro 100 Unit/Ml 10 Ml Vial) 0 unit SUBCUT QIDACANDBED COUNT INCLUDES THE [facility]; Protocol Last Admin: 02/10/21 11:37 Dose: 4 units Documented by: Lisinopril (Lisinopril 10 Mg Tab) 10 mg PO DAILY COUNT INCLUDES THE [facility] Last Admin: 02/10/21 07:59 Dose: 10 mg Documented by: Ondansetron HCl (Ondansetron 4 Mg/2 Ml Sdv) 4 mg IV Q4H PRN PRN Reason: Nausea/Vomiting Discontinued Medications Sodium Chloride (Normal Saline) 1,000 mls @ 100 mls/hr IV ASDIRECTED COUNT INCLUDES THE [facility] Last Admin: 02/09/21 08:49 Dose: 100 mls/hr Documented by: Remdesivir 200 mg/ Sodium (Chloride) 250 mls @ 250 mls/hr IV ONETIME ONE Stop: 02/09/21 10:59 Last Admin: 02/09/21 10:06 Dose: 250 mls/hr Documented by: Magnesium Sulfate 2 gm/ Premix 50 mls @ 25 mls/hr IV ONETIME ONE Stop: 02/09/21 22:24 Last Admin: 02/09/21 21:04 Dose: 25 mls/hr Documented by: Metoclopramide HCl (Metoclopramide 10 Mg/2 Ml Sdv) 7.5 mg IVPUSH ONETIME ONE Stop: 02/09/21 08:06 Last Admin: 02/09/21 08:47 Dose: 7.5 mg Documented by: - Exam Quality Assessment: Supplemental Oxygen General: Alert, Oriented HEENT: Pupils Equal, Mucous Membr. Moist/[place]ck: Supple Lungs: Normal Respiratory Effort, Crackles - Patient Data Lab Results Last 24 hrs: Laboratory Results - last 24 hr 02/09/21 02/09/21 02/09/21 Range/Units 08:30 17:26 21:02 WBC (4.23-9.07) K/mm3 RBC (4.63-6.08) M/mm3 Hgb (13.7-17.5) gm/dl Hct (40.1-51.0) % MCV (79.0-92.2) fl MCH (25.7-32.2) pg MCHC (32.2-35.5) g/dl RDW Std Deviation (35.1-43.9) fL Plt Count (163-337) K/mm3 MPV (9.4-12.3) fl Neut % (Auto) (34.0-67.9) % Lymph % (Auto) (21.8-53.1) % Sunflower % (Auto) (5.3-12.2) % Eos % (Auto) (0.8-7.0) Baso % (Auto) (0.1-1.2) % Neut # (Auto) (1.78-5.38) K/mm3 Lymph # (Auto) (1.32-3.57) K/mm3 Sunflower # (Auto) (0.30-0.82) K/mm3 Eos # (Auto) (0.04-0.54) K/mm3 Baso # (Auto) (0.01-0.08) K/mm3 Sodium (136-145) mEq/L Potassium (3.5-5.1) mEq/L Chloride (98-107) mEq/L Carbon Dioxide (21-32) mEq/L Anion Gap (5-15) BUN (7-18) mg/dL Creatinine (0.7-1.3) mg/dL Est Cr Clr Drug Dosing mL/min Estimated GFR (MDRD) (>60) mL/min BUN/Creatinine Ratio (14-18) Glucose (70-99) mg/dL POC Glucose 157 H 258 H (70-99) mg/dL Hemoglobin A1c ( - 5.6) % Calcium (8.5-10.1) mg/dL Phosphorus (2.6-4.7) mg/dL Magnesium (1.8-2.4) mg/dL Total Bilirubin (0.2-1.0) mg/dL AST (15-37) U/L ALT (16-63) U/L Alkaline Phosphatase (46-116) U/L C-Reactive Protein (<1.0) mg/dL Total Protein (6.4-8.2) g/dl Albumin (3.4-5.0) g/dl Globulin gm/dL Albumin/Globulin Ratio (1-2) Procalcitonin 0.43 H ng/mL 02/10/21 02/10/21 02/10/21 Range/Units 05:54 05:54 05:54 WBC 8.09 (4.23-9.07) K/mm3 RBC 4.23 L (4.63-6.08) M/mm3 Hgb 12.5 L (13.7-17.5) gm/dl Hct 37.3 L (40.1-51.0) % MCV 88.2 (79.0-92.2) fl MCH 29.6 (25.7-32.2) pg MCHC 33.5 (32.2-35.5) g/dl RDW Std Deviation 42.5 (35.1-43.9) fL Plt Count 386 H (163-337) K/mm3 MPV 8.6 L (9.4-12.3) fl Neut % (Auto) 74.1 H (34.0-67.9) % Lymph % (Auto) 13.7 L (21.8-53.1) % Sunflower % (Auto) 11.5 (5.3-12.2) % Eos % (Auto) 0.2 L (0.8-7.0) Baso % (Auto) 0.1 (0.1-1.2) % Neut # (Auto) 5.99 H (1.78-5.38) K/mm3 Lymph # (Auto) 1.11 L (1.32-3.57) K/mm3 Sunflower # (Auto) 0.93 H (0.30-0.82) K/mm3 Eos # (Auto) 0.02 L (0.04-0.54) K/mm3 Baso # (Auto) 0.01 (0.01-0.08) K/mm3 Sodium 135 L (136-145) mEq/L Potassium 5.0 (3.5-5.1) mEq/L Chloride 101 (98-107) mEq/L Carbon Dioxide 25 (21-32) mEq/L Anion Gap 14.0 (5-15) BUN 13 (7-18) mg/dL Creatinine 0.8 (0.7-1.3) mg/dL Est Cr Clr Drug Dosing 90.20 mL/min Estimated GFR (MDRD) > 60 (>60) mL/min BUN/Creatinine Ratio 16.3 (14-18) Glucose 231 H (70-99) mg/dL POC Glucose (70-99) mg/dL Hemoglobin A1c 8.1 H ( - 5.6) % Calcium 9.0 (8.5-10.1) mg/dL Phosphorus 3.8 (2.6-4.7) mg/dL Magnesium 2.2 (1.8-2.4) mg/dL Total Bilirubin 0.3 (0.2-1.0) mg/dL AST 38 H (15-37) U/L ALT 77 H (16-63) U/L Alkaline Phosphatase 99 (46-116) U/L C-Reactive Protein 19.3 H* (<1.0) mg/dL Total Protein 6.8 (6.4-8.2) g/dl Albumin 2.1 L (3.4-5.0) g/dl Globulin 4.7 gm/dL Albumin/Globulin Ratio 0.5 L (1-2) Procalcitonin ng/mL 02/10/21 02/10/21 Range/Units 06:39 11:06 WBC (4.23-9.07) K/mm3 RBC (4.63-6.08) M/mm3 Hgb (13.7-17.5) gm/dl Hct (40.1-51.0) % MCV (79.0-92.2) fl MCH (25.7-32.2) pg MCHC (32.2-35.5) g/dl RDW Std Deviation (35.1-43.9) fL Plt Count (163-337) K/mm3 MPV (9.4-12.3) fl Neut % (Auto) (34.0-67.9) % Lymph % (Auto) (21.8-53.1) % Sunflower % (Auto) (5.3-12.2) % Eos % (Auto) (0.8-7.0) Baso % (Auto) (0.1-1.2) % Neut # (Auto) (1.78-5.38) K/mm3 Lymph # (Auto) (1.32-3.57) K/mm3 Sunflower # (Auto) (0.30-0.82) K/mm3 Eos # (Auto) (0.04-0.54) K/mm3 Baso # (Auto) (0.01-0.08) K/mm3 Sodium (136-145) mEq/L Potassium (3.5-5.1) mEq/L Chloride (98-107) mEq/L Carbon Dioxide (21-32) mEq/L Anion Gap (5-15) BUN (7-18) mg/dL Creatinine (0.7-1.3) mg/dL Est Cr Clr Drug Dosing mL/min Estimated GFR (MDRD) (>60) mL/min BUN/Creatinine Ratio (14-18) Glucose (70-99) mg/dL POC Glucose 218 H 218 H (70-99) mg/dL Hemoglobin A1c ( - 5.6) % Calcium (8.5-10.1) mg/dL Phosphorus (2.6-4.7) mg/dL Magnesium (1.8-2.4) mg/dL Total Bilirubin (0.2-1.0) mg/dL AST (15-37) U/L ALT (16-63) U/L Alkaline Phosphatase (46-116) U/L C-Reactive Protein (<1.0) mg/dL Total Protein (6.4-8.2) g/dl Albumin (3.4-5.0) g/dl Globulin gm/dL Albumin/Globulin Ratio (1-2) Procalcitonin ng/mL Result Diagrams: 02/10/21 05:54 02/10/21 05:54 Sepsis Event Note - Evaluation Sepsis Screening Result: No Definite Risk - Focused Exam Vital Signs: Vital Signs Temp Temp Pulse Resp BP Pulse Ox Pulse Ox 02/10/21 13:41 02/10/21 11:10 98.2 F 71 20 124/89 94 L 02/10/21 09:27 95 02/10/21 07:59 97.8 F 132/80 02/10/21 07:51 66 16 132/80 93 L Pulse Ox 02/10/21 13:41 96 02/10/21 11:10 02/10/21 09:27 02/10/21 07:59 02/10/21 07:51 - Problem List & Annotations (1) Diabetes mellitus type 2 in obese SNOMED Code(s): 00479223 Code(s): E11.69 - TYPE 2 DIABETES MELLITUS WITH OTHER SPECIFIED COMPLICATION; E66.9 - OBESITY, UNSPECIFIED Status: Acute Current Visit: Yes (2) Pneumonia due to COVID-19 virus SNOMED Code(s): 338769628195696423 Code(s): U07.1 - COVID-19; J12.82 - PNEUMONIA DUE TO CORONAVIRUS DISEASE 2019 Status: Acute Current Visit: Yes (3) Pulmonary embolism on left SNOMED Code(s): 99051044 Code(s): I26.99 - OTHER PULMONARY EMBOLISM WITHOUT ACUTE COR PULMONALE Status: Acute Current Visit: Yes - Problem List Review Problem List Initiated/Reviewed/Updated: Yes - My Orders Last 24 Hours: My Active Orders 02/09/21 16:29 RT Chest Physiotherapy [RC] ASDIRECTED RT Incentive Spirometry [RC] Q1HWA 02/09/21 Dinner Consistent Carbohydrate Diet [DIET] Insulin Lispro [HumaLOG] See Protocol SUBCUT QIDACANDBED 02/09/21 21:00 Apixaban [Eliquis] 10 mg PO BID Insulin Glarg,Human.Rec.Analog [LantUS] 60 unit SUBCUT BEDTIME 02/10/21 09:00 lisinopriL [Prinivil] 10 mg PO DAILY 02/10/21 10:00 Remdesivir 100 mg Sodium Chloride 0.9% [Normal Saline] 100 ml IV Q24H 02/11/21 05:11 C-REACTIVE PROTEIN [CHEM] AM CBC WITH AUTO DIFF [HEME] AM CMP [COMPREHENSIVE METABOLIC PN,CMP] [CHEM] AM MAGNESIUM [CHEM] AM 02/12/21 05:11 C-REACTIVE PROTEIN [CHEM] AM CBC WITH AUTO DIFF [HEME] AM CMP [COMPREHENSIVE METABOLIC PN,CMP] [CHEM] AM MAGNESIUM [CHEM] AM 02/13/21 05:11 C-REACTIVE PROTEIN [CHEM] AM CBC WITH AUTO DIFF [HEME] AM CMP [COMPREHENSIVE METABOLIC PN,CMP] [CHEM] AM MAGNESIUM [CHEM] AM 02/14/21 05:11 C-REACTIVE PROTEIN [CHEM] AM CBC WITH AUTO DIFF [HEME] AM CMP [COMPREHENSIVE METABOLIC PN,CMP] [CHEM] AM MAGNESIUM [CHEM] AM - Plan Plan:: 70-year-old male with history of diabetes and recent segmental pulmonary emboli in left lung returns to emergency department with worsening hypoxemia. Covid pneumonia with hypoxemia - improved -Oxygen saturation in the mid 90s on room air -Started on remdesivir in the emergency department -C-reactive protein down to 19.3, WBC 8.1 -dexamethasone 6 mg IV daily -Incentive spirometer -Follow Covid labs in the morning Segmental pulmonary embolism on left side -Started on Eliquis on February 06 in the emergency department 10 mg twice daily -Continue Eliquis 10 mg twice daily Diabetes mellitus -Lantus 61 units daily and Metformin 500 mg twice daily -Bedside glucose 99 in the emergency department -Follow fingerstick blood sugar 4 times daily -Continue Lantus 60 units daily and stop Metformin while hospitalized -Sliding scale insulin, medium dose with NovoLog -Increase in blood sugar secondary to dexamethasone -hemoglobin A1c 8.1 Mildly elevated liver enzymes -No change overnight -Likely secondary to Covid infection, obesity, diabetes -Continue to follow while on remdesivir Hypertension -Mildly elevated in emergency department but now controlled -Continue to monitor -Continue home meds of enalapril Mild hypomagnesemiaresolved Possible history of mild congestive heart failure, mild COPD. No good history. CODE STATUS: Full code VTE prophylaxis with Eliquis
[2021-02-10] MEDS: Insulin Glarg,Human.Rec.Analog 100 Unit/ML SUBCUT SCH (21:16)
[2021-02-11] MEDS: Insulin Lispro 100 UNIT/ML 10 ML Vial SUBCUT SCH ×2 (06:11→11:21)
[2021-02-11] MEDS ORDERED: Magnesium Hydroxide 400 MG/5 ML Susp 30 ML Cup PO PRN (08:02)
[2021-02-11] MEDS: Apixaban 5 MG Tab PO SCH (08:38)
[2021-02-11] MEDS: Lisinopril 10 MG Tab PO SCH (08:38)
[2021-02-11] MEDS: Dexamethasone 10 MG/ML SDV IVPUSH SCH (08:41)
[2021-02-11] MEDS: REMDESIVIR 100 MG in Sodium Chloride 0.9% 100 ML IV SCH (09:46)
[2021-02-11] MEDS ORDERED: Insulin Glarg,Human.Rec.Analog 100 Unit/ML SUBCUT SCH (11:28)
[2021-02-11] MEDS: Azithromycin 500 MG in Sodium Chloride 0.9% 250 ML IV SCH (13:10)
[2021-02-11] MEDS: cefTRIAXone 2 GM in Sodium Chloride 0.9% 100 ML IV SCH (13:10)
--- NOTE | 2021-02-11 13:43 | PCM.DCSUM1 ---
Discharge Summary - Hospital Course HPI Initial Comments: 70-year-old male with history of type 2 diabetes controlled on insulin and Glucophage presents to the emergency department for the fourth time since he first was diagnosed with COVID-19 on January 22. Last this morning patient had oxygen saturations at home down to 85% on his home pulse oximeter and when EMS arrived his O2 sats were 88 to 89%. In the emergency department on 2 L/min via nasal cannula his oxygen saturations were between 95 and 96%. On February 06 patient was seen in the emergency department and found to have segmental branch emboli in his left lower lobe and was started on Eliquis 10 mg twice a day. Patient continues to cough bringing up very little mucus. He has had poor appetite because food tastes like "chemicals". Patient also has mild COPD, congestive heart failure, and obesity. He has had fever off and on and when I saw him on the floor his temperature was up to 101. There was some concern on chest x-ray of possible bacterial pneumonia on top of his Covid pneumonia. Diagnosis: Stroke: No - Discharge Data Discharge Date: 02/11/21 Discharge Disposition: Home, Self-Care 01 Condition: Good - Referral to Home Health Primary Care Physician: PCP Not In Area - Discharge Diagnosis/Problem(s) (1) Diabetes mellitus type 2 in obese SNOMED Code(s): 04131145 ICD Code: E11.69 - TYPE 2 DIABETES MELLITUS WITH OTHER SPECIFIED COMPLICATION; E66.9 - OBESITY, UNSPECIFIED Status: Acute Current Visit: Yes (2) Pneumonia due to COVID-19 virus SNOMED Code(s): 674395905219764981 ICD Code: U07.1 - COVID-19; J12.82 - PNEUMONIA DUE TO CORONAVIRUS DISEASE 2018 Status: Acute Current Visit: Yes (3) Pulmonary embolism on left SNOMED Code(s): 79414818 ICD Code: I26.99 - OTHER PULMONARY EMBOLISM WITHOUT ACUTE COR PULMONALE Status: Acute Current Visit: Yes - Patient Summary/Data Hospital Course: Patient was admitted and started on remdesivir, dexamethasone, and antibiotics. Patient had a significant improvement over 2 days and was on room air on the third hospitalization day. Patient was afebrile except for the first set of vital signs on the floor. White count remained normal with decreasing CRP. Patient was able to ambulate with oxygen saturations in the low to mid 90s and his resting oxygen saturations on discharge was in the mid to high 90s. Patient was discharged without antibiotics or steroids. It was felt that his pneumonia was due to Covid and not bacterial, also steroids would likely significantly worsen his diabetes. - Patient Instructions Diet: Diabetic Diet Driving: Do Not Drive (Until Wednesday) Showering/Bathing: May Shower Notify Provider of: Fever (Shortness of breath) Other/Special Instructions: Follow up with PCP in 1-2 weeks. - Discharge Plan *PRESCRIPTION DRUG MONITORING PROGRAM REVIEWED*: Not Applicable *COPY OF PRESCRIPTION DRUG MONITORING REPORT IN PATIENT ALEJANDRA: Not Applicable Home Medications: Home Meds Insulin Glarg,Human.Rec.Analog [Lantus Solostar] 60 units SQ BEDTIME 01/29/21 [History] lisinopriL [Prinivil] 10 mg PO DAILY 01/29/21 [History] metFORMIN HCl [Metformin HCl] 500 mg PO BID 01/29/21 [History] Apixaban [Eliquis] 10 mg PO BID 02/09/21 [History] Oxygen Therapy Mode: Room Air Patient Handouts: COVID-19 Frequently Asked Questions, Heart Failure, Self Care, [id number], 10 Things You Can Do to Manage Your COVID-19 Symptoms at Home - CDC (12/06/2019), Steps to Quit Smoking, Community-Acquired Pneumonia, Adult, [id number], Sepsis, Self Care, Adult Forms: ED Department Discharge Referrals: Jennyfer Amador MD [Ordering Only Provider] - 03/05/21 10:30 am (this the appointment time please arrive 15 minutes prior to the appointment , and bring your insurance cards and photi ID.) - Discharge Summary/Plan Comment DC Time >30 min.: Yes Total # of Minutes for Discharge Time: 40 minutes to include [id number] time and arranging discharge. Discharge Summary/Plan Comment: Follow-up with primary care provider in 1 week. If worsening symptoms return to the emergency room. - General Info Date of Service: 02/11/21 Admission Dx/Problem (Free Text: Admission Diagnosis/Problem Admission Diagnosis/Problem Viral pneumonia Subjective Update: Patient states he is feeling much better. He is not short of breath but continues to have a dry cough. Afebrile. Appetite is good. Functional Status: Reports: Pain Controlled - Review of Systems General: Reports: No Symptoms HEENT: Reports: No Symptoms Pulmonary: Reports: Shortness of Breath, Cough Cardiovascular: Reports: No Symptoms Gastrointestinal: Reports: No Symptoms Musculoskeletal: Reports: No Symptoms - Patient Data Vitals - Most Recent: Last Vital Signs Temp 97.5 F 02/11/21 08:38 Pulse 61 02/11/21 08:38 Resp 12 02/11/21 08:38 BP 148/72 H 02/11/21 08:38 Pulse Ox 94 L 02/11/21 09:36 Weight - Most Recent: 225 lb 14.4 oz I&O - Last 24 hours: Intake & Output 02/10/21 02/11/21 02/11/21 22:59 06:59 14:59 Intake Total 1050 400 0 Balance 1050 400 0 Lab Results - Last 24 hrs: Laboratory Results - last 24 hr 02/10/21 02/10/21 02/11/21 Range/Units 16:50 20:59 04:52 WBC 7.55 (4.23-9.07) K/mm3 RBC 4.47 L (4.63-6.08) M/mm3 Hgb 13.3 L (13.7-17.5) gm/dl Hct 39.4 L (40.1-51.0) % MCV 88.1 (79.0-92.2) fl MCH 29.8 (25.7-32.2) pg MCHC 33.8 (32.2-35.5) g/dl RDW Std Deviation 42.9 (35.1-43.9) fL Plt Count 406 H (163-337) K/mm3 MPV 8.9 L (9.4-12.3) fl Neut % (Auto) 64.7 (34.0-67.9) % Lymph % (Auto) 18.7 L (21.8-53.1) % [place] % (Auto) 15.2 H (5.3-12.2) % Eos % (Auto) 0.7 L (0.8-7.0) Baso % (Auto) 0.3 (0.1-1.2) % Neut # (Auto) 4.89 (1.78-5.38) K/mm3 Lymph # (Auto) 1.41 (1.32-3.57) K/mm3 [place] # (Auto) 1.15 H (0.30-0.82) K/mm3 Eos # (Auto) 0.05 (0.04-0.54) K/mm3 Baso # (Auto) 0.02 (0.01-0.08) K/mm3 Sodium (136-145) mEq/L Potassium (3.5-5.1) mEq/L Chloride (98-107) mEq/L Carbon Dioxide (21-32) mEq/L Anion Gap (5-15) BUN (7-18) mg/dL Creatinine (0.7-1.3) mg/dL Est Cr Clr Drug Dosing mL/min Estimated GFR (MDRD) (>60) mL/min BUN/Creatinine Ratio (14-18) Glucose (70-99) mg/dL POC Glucose 259 H 179 H (70-99) mg/dL Calcium (8.5-10.1) mg/dL Magnesium (1.8-2.4) mg/dL Total Bilirubin (0.2-1.0) mg/dL AST (15-37) U/L ALT (16-63) U/L Alkaline Phosphatase (46-116) U/L C-Reactive Protein (<1.0) mg/dL Total Protein (6.4-8.2) g/dl Albumin (3.4-5.0) g/dl Globulin gm/dL Albumin/Globulin Ratio (1-2) 02/11/21 02/11/21 02/11/21 Range/Units 04:52 05:59 10:29 WBC (4.23-9.07) K/mm3 RBC (4.63-6.08) M/mm3 Hgb (13.7-17.5) gm/dl Hct (40.1-51.0) % MCV (79.0-92.2) fl MCH (25.7-32.2) pg MCHC (32.2-35.5) g/dl RDW Std Deviation (35.1-43.9) fL Plt Count (163-337) K/mm3 MPV (9.4-12.3) fl Neut % (Auto) (34.0-67.9) % Lymph % (Auto) (21.8-53.1) % [place] % (Auto) (5.3-12.2) % Eos % (Auto) (0.8-7.0) Baso % (Auto) (0.1-1.2) % Neut # (Auto) (1.78-5.38) K/mm3 Lymph # (Auto) (1.32-3.57) K/mm3 [place] # (Auto) (0.30-0.82) K/mm3 Eos # (Auto) (0.04-0.54) K/mm3 Baso # (Auto) (0.01-0.08) K/mm3 Sodium 142 (136-145) mEq/L Potassium 4.0 (3.5-5.1) mEq/L Chloride 106 (98-107) mEq/L Carbon Dioxide 25 (21-32) mEq/L Anion Gap 15.0 (5-15) BUN 19 H (7-18) mg/dL Creatinine 0.7 (0.7-1.3) mg/dL Est Cr Clr Drug Dosing 103.09 mL/min Estimated GFR (MDRD) > 60 (>60) mL/min BUN/Creatinine Ratio 27.1 H (14-18) Glucose 128 H (70-99) mg/dL POC Glucose 104 H 171 H (70-99) mg/dL Calcium 8.9 (8.5-10.1) mg/dL Magnesium 1.8 (1.8-2.4) mg/dL Total Bilirubin 0.2 (0.2-1.0) mg/dL AST 34 (15-37) U/L ALT 67 H (16-63) U/L Alkaline Phosphatase 88 (46-116) U/L C-Reactive Protein 9.5 H* (<1.0) mg/dL Total Protein 6.8 (6.4-8.2) g/dl Albumin 2.2 L (3.4-5.0) g/dl Globulin 4.6 gm/dL Albumin/Globulin Ratio 0.5 L (1-2) Med Orders - Current: Current Medications Acetaminophen (Acetaminophen 325 Mg Tab) 650 mg PO Q4H PRN PRN Reason: Pain (Mild 1-3)/fever Albuterol (Albuterol 0.083% 2.5 Mg/3 Ml Neb Soln) 2.5 mg NEB Q2H PRN PRN Reason: Shortness Of Breath/wheezing Apixaban (Apixaban 5 Mg Tab) 10 mg PO BID [facility], [facility] Last Admin: 02/11/21 08:38 Dose: 10 mg Documented by: Benzonatate (Benzonatate 100 Mg Cap) 100 mg PO TID PRN PRN Reason: Cough Dexamethasone (Dexamethasone 10 Mg/Ml Sdv) 6 mg IVPUSH DAILY [facility], [facility]1983 Stop: 02/18/21 09:01 Last Admin: 02/11/21 08:41 Dose: 6 mg Documented by: Remdesivir 100 mg/ Sodium (Chloride) 100 mls @ 100 mls/hr IV Q24H [facility]1983 Stop: 02/13/21 10:59 Last Admin: 02/11/21 09:46 Dose: 100 mls/hr Documented by: Ceftriaxone Sodium 2 gm/ (Sodium Chloride) 100 mls @ 200 mls/hr IV Q24H [facility], [facility]1983 Stop: 02/13/21 12:59 Last Admin: 02/11/21 13:10 Dose: 200 mls/hr Documented by: Ibuprofen (Ibuprofen 600 Mg Tab) 600 mg PO Q6H PRN PRN Reason: Pain (moderate 4-6) Insulin Glargine (Insulin Glarg,Human.Rec.Analog 100 Unit/Ml) 60 unit SUBCUT BEDTIME [facility], [facility]1983 Insulin Human Lispro (Insulin Lispro 100 Unit/Ml 10 Ml Vial) 0 unit SUBCUT QIDACANDBED FORMERLY [facility], 1928–1983; Protocol Last Admin: 02/11/21 11:21 Dose: 2 units Documented by: Lisinopril (Lisinopril 10 Mg Tab) 10 mg PO DAILY [facility] Last Admin: 02/11/21 08:38 Dose: 10 mg Documented by: Magnesium Hydroxide (Magnesium Hydroxide 400 Mg/5 Ml Susp 30 Ml Cup) 30 ml PO DAILY PRN PRN Reason: Constipation Ondansetron HCl (Ondansetron 4 Mg/2 Ml Sdv) 4 mg IV Q4H PRN PRN Reason: Nausea/Vomiting Discontinued Medications Sodium Chloride (Normal Saline) 1,000 mls @ 100 mls/hr IV ASDIRECTED [facility], [facility] Last Admin: 02/09/21 08:49 Dose: 100 mls/hr Documented by: Remdesivir 200 mg/ Sodium (Chloride) 250 mls @ 250 mls/hr IV ONETIME ONE Stop: 02/09/21 10:59 Last Admin: 02/09/21 10:06 Dose: 250 mls/hr Documented by: Azithromycin 500 mg/ Sodium (Chloride) 250 mls @ 250 mls/hr IV Q24H JANNA Stop: 02/11/21 13:29 Last Admin: 02/11/21 13:10 Dose: 250 mls/hr Documented by: Magnesium Sulfate 2 gm/ Premix 50 mls @ 25 mls/hr IV ONETIME ONE Stop: 02/09/21 22:24 Last Admin: 02/09/21 21:04 Dose: 25 mls/hr Documented by: Insulin Glargine (Insulin Glarg,Human.Rec.Analog 100 Unit/Ml) 60 unit SUBCUT BEDTIME JANNA Last Admin: 02/10/21 21:16 Dose: 60 units Documented by: Metoclopramide HCl (Metoclopramide 10 Mg/2 Ml Sdv) 7.5 mg IVPUSH ONETIME ONE Stop: 02/09/21 08:06 Last Admin: 02/09/21 08:47 Dose: 7.5 mg Documented by: - Exam Quality Assessment: Denies: Supplemental Oxygen General: Reports: Alert, Oriented HEENT: Reports: Pupils Equal, Mucous Membr. Moist/[place] Neck: Reports: Supple Lungs: Reports: Clear to Auscultation, Normal Respiratory Effort Cardiovascular: Reports: Regular Rate, Regular Rhythm GI/Abdominal Exam: Normal Bowel Sounds, Soft, Non-Tender, No Organomegaly Extremities: Normal Inspection, Normal Range of Motion, Non-Tender, No Pedal Edema Psy/Mental Status: Reports: Alert, Normal Affect, Normal Mood
== END 2021-02-11 15:00 | disposition home or self-care (01) | DRG 177 ==
LOC: JD.ED 07:42 → JD.MS 09:46
PROVIDERS: ADMIT Family Medicine; ATTEND Family Medicine
PROC: XW033E5 Introduction of Remdesivir Anti-infective into Peripheral Vein, Percutaneous Approach, New Technology Group 5 (ICD-10-PCS; principal; 2021-02-09)
PROC: 8E0ZXY6 Isolation (ICD-10-PCS; principal; 2021-02-09)
PROC: 3E0333Z Introduction of Anti-inflammatory into Peripheral Vein, Percutaneous Approach (ICD-10-PCS; principal; 2021-02-09)
DX: U07.1 COVID-19 (principal); J12.82 Pneumonia due to coronavirus disease 2019; I26.99 Other pulmonary embolism without acute cor pulmonale; E11.9 Type 2 diabetes mellitus without complications; E66.9 Obesity, unspecified; H54.7 Unspecified visual loss; I10 Essential (primary) hypertension; R74.8 Abnormal levels of other serum enzymes; E83.42 Hypomagnesemia; M19.90 Unspecified osteoarthritis, unspecified site; Z86.19 Personal history of other infectious and parasitic diseases; Z86.16 Personal history of COVID-19; Z79.4 Long term (current) use of insulin; Z79.01 Long term (current) use of anticoagulants; Z98.890 Other specified postprocedural states; Z68.31 Body mass index [BMI] 31.0-31.9, adult
CPT/HCPCS: 36415; 36600; 71045; 71045-26; 80053; 80076; 81001; 82728; 82803; 82947; 83036; 83605; 83615; 83735; 83880; 84100; 84145; 84484; 85025; 85379; 85610; 85730; 86140; 87040; 93005; 93010; 94667; 94762; 96374; 99223; 99233; 99239; 99285; 99285-25; A9270-GY; J0456; J0696; J1100; J1815-GY; J2765; J3475; J7030; J7050